=== PATIENT | female | born 1985 | race Caucasian/White ===

== ENCOUNTER 2021-01-20 13:05 | Outpatient (REF) | payer OTHER, SELFPAY ==
[2021-01-21 13:26] LABS: CT PCR NOT DETECTED (Not Detect.); NG PCR NOT DETECTED (Not Detect.)
[2021-01-21 13:28] LABS: BV Int Neg Control Negative (Negative); BV Int Pos Control Positive (Positive)
[2021-01-24 16:47] LABS: HPV mRNA E6/E7 rflx Not Detected (Not Detected)
== END 2021-01-20 13:06 | disposition home or self-care (01) ==
LOC: HO.LAB 13:05
PROVIDERS: PCP Internal Medicine; Visit Provider Advanced Practice Midwife
DX: Z01.419 Encounter for gynecological examination (general) (routine) without abnormal findings (principal); E66.01 Morbid (severe) obesity due to excess calories; Z20.2 Contact with and (suspected) exposure to infections with a predominantly sexual mode of transmission; Z97.5 Presence of (intrauterine) contraceptive device; Z79.899 Other long term (current) drug therapy
CPT/HCPCS: 36415; 87480; 87491; 87510; 87591; 87624; 87660; 88142

== ENCOUNTER 2021-04-12 12:04 | Outpatient (REF) | payer OTHER, SELFPAY | END 2021-04-12 12:05 | disposition home or self-care (01) | LOC: HO.LAB 12:04 | PROVIDERS: Visit Provider Nurse Practitioner Family | DX: Z20.822 Contact with and (suspected) exposure to COVID-19 (principal); J32.9 Chronic sinusitis, unspecified; R06.2 Wheezing | CPT/HCPCS: U0003; U0005 ==

== ENCOUNTER 2021-04-13 14:50 | Outpatient (REF) | payer OTHER, SELFPAY ==
[2021-04-13 15:28] LABS: COVID-19 Test Negative (Negative)
== END 2021-04-13 14:51 | disposition home or self-care (01) ==
LOC: HO.EMPCOV 14:50
PROVIDERS: Visit Provider Internal Medicine
DX: Z20.822 Contact with and (suspected) exposure to COVID-19 (principal)
CPT/HCPCS: 36415; 87635; C9803

== ENCOUNTER 2021-06-12 15:30 | Outpatient (REF) | payer OTHER, SELFPAY ==
--- NOTE | ~2021-06-12 | US_ITS ---
EXAMINATION: US PELVIS AND TRANSVAGINAL CLINICAL INFORMATION: Hirsutism. Evaluate for PCOS. COMPARISON: None TECHNIQUE: Ultrasound of the pelvis is performed using both transabdominal and transvaginal transducers along with Doppler. Transvaginal imaging is performed due to inadequate visualization transabdominally. FINDINGS: The uterus is anteverted measuring 7.5 cm in length, 3.6 cm in AP and 4.5 cm in transverse dimension. There is an IUD visualized within the endometrial canal in good position. However, there appears to be mild discontinuity in the left arm of the IUD. The right arm of the IUD is unremarkable. There is a small hypoechoic lesion in the right posterior cervix likely a fibroid. It measures 1.7 x 1.7 x 2.3 cm. Previously, it measured 1.2 x 0.9 x 1.2 cm. No additional lesions seen. The endometrial thickness is 0.3 cm. The right ovary measures 3.5 x 2.5 x 2.5 cm and volume 11.5 mL. The left ovary measures 3.9 x 2.1 x 2.0 cm and volume 8.6 mL. There is anechoic dominant follicle measuring 1.7 x 1.2 x 1.2 cm. There is no free fluid in the cul-de-sac. US/US pelvic and transvaginal IMPRESSION: 1. Anteverted uterus with a solitary fibroid along the posterior cervix. 2. There is an IUD located within the endometrial canal. The left arm of the IUD appears severed and .
== END 2021-06-12 15:31 | disposition home or self-care (01) ==
LOC: HO.US 15:30
PROVIDERS: PCP Internal Medicine; Visit Provider Internal Medicine
DX: E66.01 Morbid (severe) obesity due to excess calories (principal); L68.0 Hirsutism; Z97.5 Presence of (intrauterine) contraceptive device
CPT/HCPCS: 76830; 76856

== ENCOUNTER 2021-09-18 10:19 | Outpatient (REF) | payer OTHER, SELFPAY ==
[2021-09-18 10:39] LABS: MANUAL DIFF FLAG NO
[2021-09-18 10:49] LABS: Basophils Absolute Auto 0.1 X10*3/uL (0.0-0.2); Basophils Percent Auto 0.7 % (0-2); Eosinophils Absolute Auto 0.2 X10*3/uL (0.0-0.4); Eosinophils Percent Auto 2.4 % (0-4); Hematocrit 40.1 % (37.0-47.0); Hemoglobin 13.1 g/dl (12.0-16.0); Imm Gran Abs Auto 0.02 X10*3/uL (0.00-0.03); Imm Gran Pct Auto 0.3 % (0.0-0.4); Lymphocytes Absolute Auto 2.6 X10*3/uL (1.2-4.9); Lymphocytes Percent Auto 34.3 % (20-40); Mean Corpuscular HGB Conc 32.7 g/dl (31.0-35.0); Mean Corpuscular Hemoglobin 29.8 pg (27.0-33.0); Mean Corpuscular Volume 91.1 fL (80.0-98.0); Monocytes Absolute Auto 0.7 X10*3/uL (0.1-1.2); Monocytes Percent Auto 8.7 % (2-11); Neutrophils Absolute Auto 4.1 x10*3/uL (2.0-8.3); Neutrophils Percent Auto 53.6 % (45-73); Platelet Count 360 X10*3/uL (160-400); Red Cell Distribution Width 13.4 % (11.0-16.0); White Blood Count 7.6 X10*3/uL (4.8-10.8)
[2021-09-18 11:16] LABS: Alanine Aminotransferase 23 U/L (0-31); Albumin Level 4.4 g/dL (3.5-5.0); Alkaline Phosphatase 61 U/L (39-117); Anion Gap 13 (12-20); Aspartate Amino Transferase 20 U/L (5-31); Bilirubin Total 0.5 mg/dL (0.0-1.0); Blood Urea Nitrogen 8 mg/dL (9-16); Carbon Dioxide 24 mmol/L (22-29); Chloride 106 mmol/L (96-108); Cholesterol 159 mg/dL; Estimated Glomerular Filt Rate > 60; Glucose Fasting 101 mg/dL (60-99); HDL Cholesterol 48 mg/dL; LDL Cholesterol Calculated 93 mg/dl; Potassium 4.4 mmol/L (3.3-5.1); Sodium 139 mmol/L (135-145); Total Protein 7.2 g/dL (6.5-8.0); Triglycerides 94 mg/dL
[2021-09-18 11:37] LABS: Thyroid Stimulating Hormone 2.39 uIU/mL (0.32-4.0)
== END 2021-09-18 10:20 | disposition home or self-care (01) ==
LOC: HO.LAB 10:19
PROVIDERS: PCP Internal Medicine; Visit Provider Internal Medicine
DX: E66.01 Morbid (severe) obesity due to excess calories (principal); E78.5 Hyperlipidemia, unspecified; D64.9 Anemia, unspecified
CPT/HCPCS: 36415; 80053; 80061; 84443; 85025

== ENCOUNTER 2021-10-10 08:42 | Outpatient (REF) | payer OTHER, SELFPAY ==
[2021-10-10 13:28] LABS: CT PCR NOT DETECTED (Not Detect.); NG PCR NOT DETECTED (Not Detect.)
== END 2021-10-10 08:43 | disposition home or self-care (01) ==
LOC: HO.LAB 08:42
PROVIDERS: PCP Internal Medicine; Visit Provider Advanced Practice Midwife
DX: Z30.432 Encounter for removal of intrauterine contraceptive device (principal); L68.0 Hirsutism
CPT/HCPCS: 58301; 87491; 87591

== ENCOUNTER → 2021-12-27 14:01 | Outpatient (BNVA) | payer OTHER, SELFPAY | PROVIDERS: PCP Internal Medicine; Visit Provider Advanced Practice Midwife | DX: Z30.430 Encounter for insertion of intrauterine contraceptive device (principal); N63.0 Unspecified lump in unspecified breast | CPT/HCPCS: 58300; 81025 ==

== ENCOUNTER 2022-01-10 14:26 | Outpatient (REF) | payer OTHER, SELFPAY ==
--- NOTE | ~2022-01-10 | MM_ITS ---
EXAMINATION: MM DIAGNOSTIC DIGITAL BREAST TOMOSYNTHESIS, BILATERAL US DIAGNOSTIC ULTRASOUND BREAST, BILATERAL CLINICAL INFORMATION: 36-year-old with small focal palpable area of concern right parasagittal sternal region. No prior breast imaging. No known family history breast cancer. The lifetime risk of breast cancer based on the Tyrer-Cuzick Model is 13%. COMPARISON: None (current study represents initial baseline exam). TECHNIQUE: Digital breast tomosynthesis is performed in both the craniocaudal and mediolateral oblique views along with computer-aided detection (CAD). Synthesized 2D images are generated from the tomosynthesis. Ultrasound right breast is targeted to the central and outer aspect as well as the palpable area right parasternal region. Ultrasound left breast is targeted to the upper outer and posterior 3:00 position. Grayscale imaging and color Doppler are performed without and with harmonics. Patient is able to point to the sternal palpable concern at time of imaging. FINDINGS: There are scattered areas of fibroglandular density (ACR BI-RADS breast composition Category b). There are scattered benign-appearing subcentimeter nodular asymmetries without ultrasound correlate. This includes small macrolobulated nodular asymmetry central posterior 3:00 left breast, mid upper outer left breast, and posterior central right breast. There is benign-appearing parenchymal asymmetry posterior outer right breast on CC view which shows normal dispersed on MLO projection. There is no adenopathy. No skin thickening. Ultrasound of the palpable concern overlying sternum just right of midline demonstrates a subtle oval solid mass isoechoic to slightly hyperechoic within the subcutaneous space with overall dimensions 0.9 cm thickness by 1.3 x 2.1 cm. The location and echogenicity are suggestive of a benign lipoma. Additional ultrasound of the left and right breast 2 further assessed asymmetries on mammography show no ultrasound correlate. There is no cystic or solid mass or intramammary node. No focal architectural abnormality. Preliminary results and management are discussed with the patient at time of visit. MM/MM tomosynthesis diagnostic BI IMPRESSION: 1. Probable subcutaneous lipoma at site of clinical concern overlying sternum measuring 0.9 cm in thickness by 1.3 x 2.1 cm. 2. Scattered benign-appearing nodular asymmetries on mammography without ultrasound correlate. ASSESSMENT: BI-RADS 3: Probably Benign RECOMMENDATION: 1. Bilateral diagnostic mammography in 6 months to follow-up the probable benign small nodular asymmetries. 2. The suspected lipoma subcutaneous space overlying right sternum could be followed clinically. If increasing, or if clinically indicated, this could be further characterized with MRI. This patient's information was entered into a reminder system with a target due date for their next mammogram.
== END 2022-01-10 14:27 | disposition home or self-care (01) ==
LOC: HO.MAMMO 14:26
PROVIDERS: PCP Internal Medicine; Visit Provider Advanced Practice Midwife
DX: N63.12 Unspecified lump in the right breast, upper inner quadrant (principal); R92.2 Inconclusive mammogram
CPT/HCPCS: 76642; 77062; 77066

== ENCOUNTER 2022-02-16 14:00 | Outpatient (REF) | payer OTHER, SELFPAY ==
[2022-02-17 12:09] LABS: CT PCR NOT DETECTED (Not Detect.); NG PCR NOT DETECTED (Not Detect.)
[2022-02-17 14:44] LABS: BV Int Neg Control Negative (Negative); BV Int Pos Control Positive (Positive)
== END 2022-02-16 14:01 | disposition home or self-care (01) ==
LOC: HO.LAB 14:00
PROVIDERS: PCP Internal Medicine; Visit Provider Advanced Practice Midwife
DX: Z01.411 Encounter for gynecological examination (general) (routine) with abnormal findings (principal); Z20.2 Contact with and (suspected) exposure to infections with a predominantly sexual mode of transmission; N89.8 Other specified noninflammatory disorders of vagina
CPT/HCPCS: 81025; 87480; 87491; 87510; 87591; 87660

== ENCOUNTER 2022-04-14 15:44 | Outpatient (REF) | payer OTHER, SELFPAY ==
[2022-04-14 16:42] LABS: Influenza A PCR NEGATIVE (Negative); Influenza B PCR NEGATIVE (Negative); Resp Syncy Virus RNA Qual PCR NEGATIVE (Negative); SARS COV2 PCR INHOUSE NEGATIVE (Negative)
== END 2022-04-14 15:45 | disposition home or self-care (01) ==
LOC: HO.LNP 15:44
PROVIDERS: Visit Provider Physician Assistant Medical
DX: Z20.822 Contact with and (suspected) exposure to COVID-19 (principal); R05.9 Cough, unspecified
CPT/HCPCS: 0241U

== ENCOUNTER 2022-07-13 14:54 | Outpatient (REF) | payer OTHER, SELFPAY ==
--- NOTE | ~2022-07-13 | MM_ITS ---
EXAMINATION: MM DIAGNOSTIC DIGITAL BREAST TOMOSYNTHESIS, BILATERAL CLINICAL INFORMATION: Short interval follow-up scattered bilateral nodular asymmetries noted at diagnostic baseline. Age 37. No known family history breast cancer. The lifetime risk of breast cancer based on the Tyrer-Cuzick Model is 13%. COMPARISON: Bilateral mammography and bilateral targeted breast ultrasound 01/10/2022. TECHNIQUE: Digital breast tomosynthesis is performed in both the craniocaudal and mediolateral oblique views along with computer-aided detection (CAD). Synthesized 2D images are generated from the tomosynthesis. FINDINGS: There are scattered areas of fibroglandular density (ACR BI-RADS breast composition Category b). There is no interval mass or architectural abnormality or developing density. Incidental benign parenchymal asymmetry is again noted mid outer right breast on CC view with normal fibroglandular and fatty attenuation on tomography. Previously suggested small nodular asymmetries are less conspicuous. No suspicious findings. The skin contours are unremarkable. Results are discussed with the patient at time of visit. MM/MM tomosynthesis diagnostic BI IMPRESSION: No mammographic evidence of malignancy. ASSESSMENT: BI-RADS 2: Benign RECOMMENDATION: Routine annual mammography screening, beginning age 40, or earlier as clinical risk factors warrant. This patient's information was entered into a reminder system with a target due date for their next mammogram.
== END 2022-07-13 14:55 | disposition home or self-care (01) ==
LOC: HO.MAMMO 14:54
PROVIDERS: PCP Internal Medicine; Visit Provider Internal Medicine
DX: N64.89 Other specified disorders of breast (principal)
CPT/HCPCS: 77062; 77066

== ENCOUNTER 2022-12-27 17:10 | Outpatient (REF) | payer OTHER, SELFPAY ==
[2022-12-27 18:55] LABS: Influenza A PCR NEGATIVE (Negative); Influenza B PCR NEGATIVE (Negative); Resp Syncy Virus RNA Qual PCR NEGATIVE (Negative); SARS COV2 PCR INHOUSE NEGATIVE (Negative)
== END 2022-12-27 17:11 | disposition home or self-care (01) ==
LOC: HO.LAB 17:10
PROVIDERS: Visit Provider Physician Assistant Medical
DX: R05.9 Cough, unspecified (principal); Z20.822 Contact with and (suspected) exposure to COVID-19
CPT/HCPCS: 0241U

== ENCOUNTER → 2023-02-18 14:56 | Outpatient (BNVA) | payer OTHER, SELFPAY | PROVIDERS: PCP Internal Medicine; Visit Provider Advanced Practice Midwife | DX: Z13.89 Encounter for screening for other disorder (principal) ==

== ENCOUNTER 2023-04-04 16:07 | Outpatient (REF) | payer OTHER, SELFPAY ==
[2023-04-05 08:13] LABS: HBS Num1 14.87 mIU/mL (0-7.99); HBc Num1 0.05 S/CO (0.00-0.79); HBsAGNum1 0.39 S/CO (0.00-0.99); Hepatitis B Core Antibody Nonreactive (Nonreactive); Hepatitis B Surface Antigen Negative (Negative); ~Hepatitis B Surface Antibody REACTIVE (Nonreactive)
[2023-04-07 00:53] LABS: TS Negative Control Passed; TS Panel A 0; TS Panel B 0; TS Positive Control Passed; TSpotTB Negative (Negative)
[2023-04-11 18:39] LABS: Rubella IgG Antibody 7.48 Index; Varicella IgG Antibody >4000.00 index
[2023-04-11 21:39] LABS: Rubeola IgG (Measles) >300.00 AU/mL
== END 2023-04-04 16:08 | disposition home or self-care (01) ==
LOC: HO.LAB 16:07
PROVIDERS: PCP Internal Medicine; Visit Provider Internal Medicine
DX: Z23 Encounter for immunization (principal); Z11.1 Encounter for screening for respiratory tuberculosis
CPT/HCPCS: 36415; 86481; 86704; 86706; 86735; 86762; 86765; 86787; 87340

== ENCOUNTER → 2023-05-10 12:07 | Outpatient (REF) | payer OTHER, SELFPAY ==
--- NOTE | 2023-05-10 12:14 | ECG_ITS ---
Test Reason : CP Blood Pressure : / mmHG Vent. Rate : 068 BPM Atrial Rate : 068 BPM P-R Int : 180 ms QRS Dur : 088 ms QT Int : 404 ms P-R-T Axes : 044 013 028 degrees QTc Int : 429 ms Normal sinus rhythm Normal ECG No previous ECGs available Referred By: Daisy Espinoza Electronically Signed By:ELLI BENNETT MD
== END ==
LOC: HO.CARD 12:07
PROVIDERS: PCP Internal Medicine; Visit Provider Internal Medicine
DX: R07.9 Chest pain, unspecified (principal)
CPT/HCPCS: 93005

== ENCOUNTER → 2023-05-10 12:14 | Outpatient (BNV) | payer OTHER, SELFPAY | PROVIDERS: PCP Internal Medicine; Visit Provider Internal Medicine Cardiovascular Disease | DX: R07.9 Chest pain, unspecified (principal) | CPT/HCPCS: 93010 ==

== ENCOUNTER 2023-05-11 10:29 | Outpatient (REF) | payer OTHER, SELFPAY ==
[2023-05-11 11:43] LABS: Alanine Aminotransferase 15 U/L (0-31); Albumin Level 4.2 g/dL (3.5-5.0); Alkaline Phosphatase 61 U/L (39-117); Anion Gap 13 (12-20); Aspartate Amino Transferase 14 U/L (5-31); Bilirubin Total 0.8 mg/dL (0.0-1.0); Blood Urea Nitrogen 11 mg/dL (9-16); Calcium 9.3 mg/dL (8.4-10.2); Carbon Dioxide 24 mmol/L (22-29); Chloride 107 mmol/L (96-108); Cholesterol 137 mg/dL; Estimated Glomerular Filt Rate > 60; Glucose Fasting 106 mg/dL (60-99); HDL Cholesterol 39 mg/dL; LDL Cholesterol Calculated 78 mg/dl; Potassium 3.9 mmol/L (3.3-5.1); Sodium 140 mmol/L (135-145); Total Protein 6.8 g/dL (6.5-8.0); Triglycerides 104 mg/dL
== END 2023-05-11 10:30 | disposition home or self-care (01) ==
LOC: HO.LAB 10:29
PROVIDERS: PCP Internal Medicine; Visit Provider Internal Medicine
DX: R07.9 Chest pain, unspecified (principal)
CPT/HCPCS: 36415; 80053; 80061

== ENCOUNTER 2023-08-05 18:21 | Emergency (ER) | payer MEDICAID, SELFPAY ==
[2023-08-05 19:59] VITALS: BP 160/107; PULSE 76; RESP 16; TEMP 36.4; O2SAT 98; BMI 42.9
--- NOTE | 2023-08-05 20:00 | ED_ITS ---
HPI - General Adult General Chief complaint: Back Pain/Injury Stated complaint: lower back pain Time Seen by Provider: 08/05/23 21:41 Source: patient Mode of arrival: ambulatory Limitations: no limitations History of Present Illness HPI narrative: 38 YOLD FEMALE WITH PMH OF [place] PRESENTS TO THE ED for left sided scitacia exacerbation radiating down left leg. patient denies any urinary/bowel incontinenece, recent truama, abdominal pain, nausea, vomitting, fever, or chills. Related Data Home Medications Medication Instructions Recorded Confirmed cetirizine 10 mg tablet (Wal-Zyr 10 mg PO DAILY PRN 05/24/21 10/15/22 (cetirizine)) Previous Rx's Medication Instructions Recorded sumatriptan succinate 25 mg tablet 25 mg PO Q2-4H PRN migraine 09/28/21 headache 30 days #9 tabs albuterol sulfate 90 mcg/actuation 1 inh inhalation QID PRN shortness 04/14/22 aerosol inhaler of breath or wheezing #6.7 grams valacyclovir 1 gram tablet 1,000 mg PO TID 7 days #21 tabs 09/24/22 (Valtrex) cyclobenzaprine 10 mg tablet 10 mg PO TID PRN muscle spasm 5 08/05/23 days #15 tabs naproxen 500 mg tablet 500 mg PO BID PRN pain 7 days #14 08/05/23 tabs Allergies Allergy/AdvReac Type Severity Reaction Status Date / Time Seasonal Allergies Allergy Intermediate sinus Verified 08/05/23 20:02 infections, asthma Review of Systems Review of Systems: back pain Yes all other systems are reviewed and are negative PMFSH Past Medical History Medical History Allergic rhinitis Idiopathic hirsutism Migraines Mild persistent asthma Moderate recurrent major depression Surgical History History of wisdom tooth extraction Family History Family History (Updated 02/18/23 @ 15:27 by BOB Krishnamurthy) Father No problems noted. Mother No problems noted. Brother No problems noted. Sister No problems noted. Social History Social History Housing: Apartment Alcohol intake: current Alcohol intake frequency: holidays/special occasions only Alcohol type: wine Patient Tobacco Use Status: Never used Tobacco Smoked in Last 30 Days: No e-Cigarette/Vaping Use: Never Used Second Hand Smoke Exposure: No Use of substances other than those prescribed or required for medical reasons: No Advance Directives: No Advance Directives Information Provided: Yes service: No Current occupational status: employed Current occupation: [employer] Current occupational exposures/hazards: No Gender identity: Female Cognitive needs: No Hearing needs: No Vision needs: No Physical Exam ED Vital Signs: Vital Signs - 24 hr 08/05/23 22:16 Temperature 99.0 F Pulse Rate 63 Respiratory Rate 16 Blood Pressure 163/101 H Pulse Oximetry 99 Oxygen Delivery Method Room Air BMI result Body Mass Index 42.9 Const General: cooperative, healthy appearing, comfortable, no acute distress, well developed, alert, awake and Physically active Orientation/consciousness: oriented to person, oriented to place, oriented to time and patient oriented x3 HENMT Head: Yes normal to inspection, Yes No palpable skull fracture present, Yes normocephalic and Yes atraumatic Eyes General: appearance normal, both eyes and all related structures Neck Neck: Yes normal visual inspection, Yes full ROM, Yes no lymphadenopathy, Yes no meningeal signs, Yes trachea midline, Yes supple, No anterior neck swelling and No tender Chest Chest palpation & inspection: normal inspection of the chest and normal palpation of entire chest wall Resp Effort & Inspection: normal respiratory effort and able to speak in complete sentences Auscultation: clear to auscultation bilaterally Cardio Jugular venous distension: no JVD Heart sounds: S1 normal heart sound present and S2 normal heart sound present GI Inspection: Yes normal to inspection and No abdominal wall ecchymosis Palpation (GI): Soft to palpation, not firm, nontender, no guarding and not rigid General: No CVA tenderness and Yes no CVA tenderness Back/Spine/Pelvis Other: positive for left gluteal tenderness without any redness, ecchymosis, crepitus, fluctulance, or mass. Back: no CVA tenderness, No CVA tenderness and No back tenderness Skin General skin exam: no rashes or lesions noted, elasticity normal and turgor normal Neuro General: oriented to person, oriented to place, oriented to time, patient oriented x3, gait normal, tone normal, moves all extremities, Normal light touch and pain sensation, no meningeal signs, no focal motor deficits, CN's II-XI intact bilaterally and normal sensation to monofilament Extrem General: Yes normal to inspection and Yes full ROM Psych Appearance: grossly normal, well kempt and not disheveled Course Course Course Narrative: RME performed by Amy Whitfield PA-C. Patient is a 38 year old assigned female at presenting to the emergency department with low back pain. Patient placed back in the waiting room pending room availability. Medications Administered Discontinued Medications Generic Name Dose Route Start Last Admin Trade Name Freq PRN Reason Stop Dose Admin Cyclobenzaprine HCl 10 mg 08/05/23 22:24 08/05/23 22:34 Cyclobenzaprine Hcl 10 Mg Tablet PO 08/05/23 22:25 10 mg ONCE ONE Administration Ketorolac Tromethamine 30 mg 08/05/23 22:24 08/05/23 22:34 Ketorolac Tromethamine 30 Mg/Ml Vial IM 08/05/23 22:25 30 mg ONCE ONE Administration Medical Decision Making Medical Decision Making MDM Narrative: 38 yold female presents to ED for sciatica exacerbation. Patient denies any trauma, abdominal pain, nausea, vomiting, flank pain, fever, chills, dysuria, hematuria. Sciatica exacerbation. Differential Diagnosis Differential Diagnoses: The differential diagnosis associated with the presentation includes (UTI, kidney stones, lumbar radiculopathy, sciatica) External Record Review External record reviewed: Other (Prior visit) Tests considered The following testing was considered but not selected: UA, x-ray Prescription Management I considered prescription management with: Pain Medication Discharge Plan Discharge Clinical Impression: Sciatic pain Patient Disposition: Home, Self-Care Instructions: Sciatica (ED) Additional Instructions: Return to the ED immediately for worsening back pain, urinary/bowel incontinence, nausea, vomiting, flank pain, fever, chills, dysuria, hematuria, numbness/tingling of lower extremity, paralysis, trouble walking, or any other concerning symptoms. Please follow-up primary care provider Prescriptions: New naproxen 500 mg tablet 500 mg PO BID PRN (Reason: pain) 7 Days Qty: 14 0RF cyclobenzaprine 10 mg tablet 10 mg PO TID PRN (Reason: muscle spasm) 5 Days Qty: 15 0RF Rx Instructions: side effect is drowsiness. Do not take at work or while driving. No Action cetirizine [Wal-Zyr (cetirizine)] 10 mg tablet 10 mg PO DAILY PRN sumatriptan succinate 25 mg tablet 25 mg PO Q2-4H PRN (Reason: migraine headache) 30 Days Qty: 9 3RF Rx Instructions: do not exceed 8 doses per 24 hrs albuterol sulfate 90 mcg/actuation HFA aerosol inhaler 1 inh inhalation QID PRN (Reason: shortness of breath or wheezing) Qty: 6.7 0RF valacyclovir [Valtrex] 1 gram tablet 1,000 mg PO TID 7 Days Qty: 21 0RF Mirena 20 mcg/24 hours (7 yrs) 52 mg intrauterine device 1 device intrauterine ONCE Qty: 1 0RF Stand Alone Forms: Work/School Release Interventions: ED Discharge Assessment Last Done: 08/05/23 23:18 Discharge Date/Time: 08/05/23 23:18 Print Language: [place]
[2023-08-05 22:16] VITALS: BP 163/101; PULSE 63; RESP 16; TEMP 37.2; O2SAT 99
--- NOTE | 2023-08-05 22:45 | PC.NURSE ---
pt a&o, no sob or chest pain, medicated per mar for back pain. Will continue to monitor.
== END 2023-08-05 23:18 | disposition home or self-care (01) ==
PROVIDERS: Emergency Provider Internal Medicine
DX: M54.42 Lumbago with sciatica, left side (principal); Z79.899 Other long term (current) drug therapy
CPT/HCPCS: 96372; 99284; J1885

== ENCOUNTER 2023-09-12 09:18 | Emergency (ER) | payer OTHER, MEDICAID, SELFPAY ==
--- NOTE | ~2023-09-12 | XR_ITS ---
EXAMINATION: XR KNEE, RIGHT CLINICAL INFORMATION: Pain. Knee injury. COMPARISON: None available. TECHNIQUE: Four views of the right knee. FINDINGS: No joint effusion, fracture, or dislocation or destructive process. XR/XR knee RT 3V IMPRESSION: Normal right knee.
--- NOTE | ~2023-09-12 | XR_ITS ---
EXAMINATION: XR FINGER, LEFT CLINICAL INFORMATION: Pain in the thumb. COMPARISON: None available. TECHNIQUE: 3 views of the left thumb. FINDINGS: Transverse nondisplaced fracture through the base of the distal phalanx of the thumb. The IP joint is intact. No other fractures are seen. XR/XR finger LT min 2V IMPRESSION: Fracture as described.
[2023-09-12 09:20] VITALS: BP 182/101; PULSE 80; RESP 19; TEMP 36.8; O2SAT 97; BMI 44.3
--- NOTE | 2023-09-12 09:34 | ED_ITS ---
HPI - General Adult General Chief complaint: General Medical Stated complaint: L Thumb & R Knee Injury S/P Fall 09/12/23 Time Seen by Provider: 09/12/23 09:34 Source: patient, RN notes reviewed and old records reviewed Mode of arrival: ambulatory History of Present Illness HPI narrative: 38-year-old female with a past medical history of asthma, migraines, depression presenting to the ED complaining of left thumb and right knee pain s/p mechanical trip and fall work [employer] around 08:45AM. States tripped and fell while reaching for badge to clock in, falling forward, mostly caught herself, denies head trauma or LOC. denies symptoms prior to fall. Has been ambulatory since incident. Denies new neck/back pain, CP/SOB, abdominal pain, numbness, weakness Onset (ago): hour(s) Related Data Home Medications Medication Instructions Recorded Confirmed cetirizine 10 mg tablet (Wal-Zyr 10 mg PO DAILY PRN 05/24/21 10/15/22 (cetirizine)) Previous Rx's Medication Instructions Recorded sumatriptan succinate 25 mg tablet 25 mg PO Q2-4H PRN migraine 09/28/21 headache 30 days #9 tabs albuterol sulfate 90 mcg/actuation 1 inh inhalation QID PRN shortness 04/14/22 aerosol inhaler of breath or wheezing #6.7 grams valacyclovir 1 gram tablet 1,000 mg PO TID 7 days #21 tabs 09/24/22 (Valtrex) cyclobenzaprine 10 mg tablet 10 mg PO TID PRN muscle spasm 5 08/05/23 days #15 tabs naproxen 500 mg tablet 500 mg PO BID PRN pain 7 days #14 08/05/23 tabs Allergies Allergy/AdvReac Type Severity Reaction Status Date / Time Seasonal Allergies Allergy Intermediate sinus Verified 08/05/23 20:02 infections, asthma Review of Systems Review of Systems: Constitutional: No Fever, No Chills ENT/Mouth: No Ear Pain, No Nasal Congestion, No sore throat, No Rhinorrhea, No Swallowing Difficulty Cardiovascular: No Chest Pain, No SOB Respiratory: No Cough Gastrointestinal: No Nausea, No Vomiting, No Abdominal pain Musculoskeletal: + joint pain, No Myalgias, + Joint Swelling Skin: No Skin Lesions, No rash Neuro: No Weakness, No Numbness, No Paresthesias, No head injury, No LOC Yes all other systems are reviewed and are negative Constitutional: Constitutional: Reports as per [facility] Past Medical History Attestation statement: The following information was validated with the patient. Source: old records reviewed Medical History Idiopathic hirsutism Migraines Moderate recurrent major depression Allergic rhinitis Mild persistent asthma Surgical History History of wisdom tooth extraction Family History Family History Father No problems noted. Mother No problems noted. Brother No problems noted. Sister No problems noted. Social History Social History Housing: Apartment Alcohol intake: current Alcohol intake frequency: holidays/special occasions only Alcohol type: wine Patient Tobacco Use Status: Never used Tobacco e-Cigarette/Vaping Use: Never Used Second Hand Smoke Exposure: No Advance Directives: No service: No Current occupational status: employed Current occupation: [employer] Current occupational exposures/hazards: No Gender identity: Female Cognitive needs: No Hearing needs: No Vision needs: No Physical Exam ED Vital Signs: Vital Signs - 24 hr 09/12/23 09:20 Temperature 98.2 F Pulse Rate 80 Respiratory Rate 19 Blood Pressure 182/101 H Pulse Oximetry 97 Oxygen Delivery Method Room Air BMI result Body Mass Index 44.3 Const General: cooperative, healthy appearing and no acute distress Orientation/consciousness: patient oriented x3 Limitations: no limitations HENOR Head: Yes normal to inspection and Yes atraumatic Ears: hearing grossly normal bilaterally General nose exam: Normal external nose present Face and sinus: Yes normal facial exam Eyes General: appearance normal, both eyes and all related structures EOM: EOMs intact bilaterally Neck Neck: Yes normal visual inspection and Yes no meningeal signs Resp Effort & Inspection: normal respiratory effort and no respiratory distress Cardio Rate: regular rate Peripheral pulses: Peripheral pulses 2+ throughout GI Inspection: Yes normal to inspection Palpation (GI): Soft to palpation, nontender, no guarding and not rigid General: Yes no CVA tenderness Back/Spine/Pelvis Back: no CVA tenderness Skin Rashes: no rashes Neuro General: patient oriented x3, tone normal and no meningeal signs Cranial nerves: Yes CN's II-XII intact bilaterally Gait exam (Neuro): Normal gait present Extrem Other: Right knee with superficial abrasions noted. Mildly tender to palpation. Full range of motion intact. NV intact distally Left thumb with mild swelling to palmar distal aspect with tenderness to palpation. ROM intact however slightly limited secondary to pain. Finger to thumb opposition intact. Neurovascularly intact. No snuffbox tenderness Course Course Course Narrative: XR knee RT 3V IMPRESSION: Normal right knee. XR finger LT min 2V IMPRESSION: Fracture as described. Transverse nondisplaced fracture through the base of the distal phalanx of the thumb. The IP joint is intact. No other fractures are seen. >> patient placed in finger splint recommended close orthopedic hand follow-up Results discussed with patient including worrisome signs and symptoms and strict return precautions, and when to return to the emergency department. They v erbalized understanding and feel safe for discharge at this time. Medications Administered Discontinued Medications Generic Name Dose Route Start Last Admin Trade Name Freq PRN Reason Stop Dose Admin Bacitracin 1 appl 09/12/23 10:02 09/12/23 10:13 Bacitracin Oint 0.9 Gm Packet TOPICAL 09/12/23 10:03 1 appl ONCE ONE Administration Protocol Procedures Orthopedic Splinting/Casting Injury #1: Side: left Upper Extremity Injury Location: finger Upper Extremity Immobilizer: finger (other) Medical Decision Making Medical Decision Making [facility] Narrative: 38-year-old female with a past medical history of asthma, migraines, depression presenting to the ED complaining of left thumb and right knee pain s/p mechanical trip and fall work [employer] around 08:45AM. On exam hypertensive likely from pain, NAD, nontoxic appearing. Physical exam as above. Concern for fracture versus sprain vs tendon/ligamental injury. Low suspicion for septic joint/arthritis Plan: X-rays Please refer to course for remaining clinical decision making, interpretation of labs/imaging results, and discussions with consultants and/or family members. Differential Diagnosis Differential Diagnoses: The differential diagnosis associated with the presentation includes As above Admission/Observation Consideration of admission/observation: Escalation of care including admission/observation considered Lab Data [facility] Lab Attestation statement: I reviewed the patient's lab results. Independent Interpretation I performed an independent interpretation of an: Plain X-Ray Radiology Impression Discussion of test interpretation with radiology: I have reviewed the radiologist's reading. External Record Review External record reviewed: Inpatient record, Office record, Outpatient record, Prior outpatient labs, Prior outpatient radiology, Primary care record and Outside ED record Tests considered The following testing was considered but not selected: As above Prescription Management I considered prescription management with: Pain Medication Discharge Plan Discharge Clinical Impression: Fracture of distal phalanx of finger Patient Disposition: Home, Self-Care Instructions: Finger Fracture (ED) Additional Instructions: Keep finger splint on, dry and clean You need to follow-up with orthopedic hand specialist Ice and elevate Take Tylenol /Motrin for pain/swelling If symptoms persist or worsen her pain becomes unbearable return to the ED Avoid heavy lifting Prescriptions: No Action naproxen 500 mg tablet 500 mg PO BID PRN (Reason: pain) 7 Days Qty: 14 0RF cyclobenzaprine 10 mg tablet 10 mg PO TID PRN (Reason: muscle spasm) 5 Days Qty: 15 0RF Rx Instructions: side effect is drowsiness. Do not take at work or while driving. cetirizine [Wal-Zyr (cetirizine)] 10 mg tablet 10 mg PO DAILY PRN sumatriptan succinate 25 mg tablet 25 mg PO Q2-4H PRN (Reason: migraine headache) 30 Days Qty: 9 3RF Rx Instructions: do not exceed 8 doses per 24 hrs albuterol sulfate 90 mcg/actuation HFA aerosol inhaler 1 inh inhalation QID PRN (Reason: shortness of breath or wheezing) Qty: 6.7 0RF valacyclovir [Valtrex] 1 gram tablet 1,000 mg PO TID 7 Days Qty: 21 0RF Mirena 20 mcg/24 hours (7 yrs) 52 mg intrauterine device 1 device intrauterine ONCE Qty: 1 0RF Referrals: Radha Phan MD [Physician] - 1 week Stand Alone Forms: Work/School Release Interventions: ED Discharge Assessment Last Done: 09/12/23 11:10 Discharge Date/Time: 09/12/23 11:16
[2023-09-12] MEDS: Bacitracin Oint 0.9 GM PACKET 1 APPL TOPICAL (10:13)
== END 2023-09-12 11:16 | disposition home or self-care (01) ==
PROVIDERS: Emergency Provider Emergency Medicine; PCP Internal Medicine
DX: S62.522A Displaced fracture of distal phalanx of left thumb, initial encounter for closed fracture (principal); M25.561 Pain in right knee; M79.645 Pain in left finger(s); W01.0XXA Fall on same level from slipping, tripping and stumbling without subsequent striking against object, initial encounter; Y93.9 Activity, unspecified; Y92.9 Unspecified place or not applicable; Y99.0 Civilian activity done for income or pay; Z79.899 Other long term (current) drug therapy
CPT/HCPCS: 29130; 73140; 73562; 99282; 99283

== ENCOUNTER 2023-09-17 12:08 | Outpatient (REF) | payer OTHER, MEDICAID, SELFPAY ==
--- NOTE | ~2023-09-17 | XR_ITS ---
EXAMINATION: XR HAND, LEFT CLINICAL INFORMATION: Left hand pain, attention thumb distal phalanx. COMPARISON: 09/12/2023 left thumb radiographs. TECHNIQUE: 2 views of the left hand and 2 views of the left thumb. FINDINGS: Redemonstration of a transverse nondisplaced fracture through the base of the distal phalanx of the thumb. Fracture lines appear slightly more conspicuous. XR/XR hand LT min 3V IMPRESSION: Redemonstration of fracture base of distal phalanx of the thumb.
== END 2023-09-17 12:09 | disposition home or self-care (01) ==
LOC: HO.HOSX 12:08
PROVIDERS: Visit Provider Orthopaedic Surgery
DX: S62.522A Displaced fracture of distal phalanx of left thumb, initial encounter for closed fracture (principal)
CPT/HCPCS: 26750; 73130; 99202

== ENCOUNTER 2023-09-17 12:22 | Outpatient (AMB) | payer OTHER, MEDICAID, SELFPAY ==
--- NOTE | 2023-09-17 12:40 | MHC.OFFVIS ---
Intake Intake Visit Reasons: F/C left thumb fx/ED follow up Allergies Seasonal Allergies Allergy (Intermediate, Verified 08/05/23 20:02) sinus infections, asthma HPI F/C left thumb fx/ED follow up HPI Details Maria Elena is a 38 year old woman who presents for a workers comp visit of her left thumb fracture, S/P fall, DOI: 09/12/23. She says that she fell at her work site property while clocking in for the morning. She was seen in the ED and placed in a splint before being referred here. She says she is doing well overall, with some pain and tension when she pushes on her thumb. She is seen today wearing her brace today. She says this occurred on her work property, in the parking lot while walking to her workplace to punch in for her shift. [facility] Medical History Idiopathic hirsutism Migraines Moderate recurrent major depression Allergic rhinitis Mild persistent asthma Surgical History History of wisdom tooth extraction Family History Father No problems noted. Mother No problems noted. Brother No problems noted. Sister No problems noted. 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 Current occupational exposures/hazards: No Gender identity: Female Cognitive needs: No Hearing needs: No Vision needs: No Female Reproductive History Menstrual Age of Menarche: 13 Review of Systems Const All systems reviewed & are unremarkable except as noted in HPI and below Physical Exam Const General: cooperative, healthy appearing and no acute distress Orientation/consciousness: patient oriented x3 HEENT Head: Yes normocephalic and Yes atraumatic Eyes EOM: EOMs intact bilaterally Resp Effort & Inspection: normal respiratory effort and able to speak in complete sentences Cardio Jugular venous distension: no JVD Skin General skin exam: turgor normal Rashes: no rashes Neuro General: patient oriented x3 Extrem Other: Evaluation of Left Upper Extremity: The patient is alert, oriented, and in no acute distress Neuro: Median, Ulnar, Radial nerves motor and sensory intact and sensation is normal to the tips of all digits Vascular: Cap refill brisk ROM: She can bring her fingers closed toa fist and back into full extension Skin: No lacerations or abrasions. General: No Erythema or evidence of infection. She has got some resolving swelling and ecchymosis about the left thumb. Most TTP over the thumb distal phalanx No MCP or CMC joint tenderness No snuffbox tenderness Minimal tenderness over scaphoid tubercle No tenderness about the wrist it it she has smooth painless wrist range of motion. Good active motion at the CMC and MCP joints without discomfort, other than some tightness felt at extremes of motion Radiographs: 3 views of the left hand, with attention to the thumb, were taken and viewed by me today in clinic. They show a distal phalanx body fracture, comminuted and minimally displaced. There is satisfactory fracture alignment, unchanged from her previous radiographs on 09/12/23. Psych Appearance: grossly normal Affect: normal affect Attitude: cooperative Office Procedures Fracture Care Details: Distal phalanx fracture care 82597 Fracture Billing Code: Fracture Billing Code Assessment & Plan Assessment & Plan (1) Fracture of distal phalanx of left thumb: Code(s): S62.522A - Displaced fracture of distal phalanx of left thumb, initial encounter for closed fracture Plan Assessment & Plan: 1. Left distal phalanx body fracture, comminuted, minimally displaced From a fall, DOI: 09/12/23 This is a workers comp injury I educated her about this condition I discussed operative and non-operative treatment options I believe this can be managed non-operatively She was placed in a short-arm thumb spica cast today. I discussed activity modification, she is to avoid lifting anything heavier than a cellphone, or pinching against her thumb for the next 6 weeks She will follow up in 3 weeks with new radiographs. If she is only minimally tender, and there is some evidence of interval bony healing we can then switch to a thumb splint with daytime activities for an additional 2 weeks. Scribed for Radha Phan MD by Juan Hernadez infertility medical assistant, on 09/17/23 at 12:45 PM, EST. Orders: Orders XR hand LT min 3V Today M79.642 - Pain in left hand Coding Level of Care Code New Pt Level 3 (48377) Diagnoses Fracture of distal phalanx of left thumb S62.522A CPT Codes Fracture Care - Fracture Billing Code: Fracture Billing Code ([id number])
== END 2023-09-17 13:21 | disposition home or self-care (01) ==
PROVIDERS: PCP Internal Medicine; Visit Provider Orthopaedic Surgery
DX: S62.522A Displaced fracture of distal phalanx of left thumb, initial encounter for closed fracture (principal)
CPT/HCPCS: 26750; 99203

== ENCOUNTER 2023-10-08 09:52 | Outpatient (REF) | payer OTHER, MEDICAID, SELFPAY ==
--- NOTE | ~2023-10-08 | XR_ITS ---
EXAMINATION: XR HAND, LEFT CLINICAL INFORMATION: Pain. COMPARISON: Radiograph left hand 09/17/2023. TECHNIQUE: PA, lateral, and oblique views of the left hand. FINDINGS: Similar appearance of comminuted fracture within the base of the distal phalanx of the first digit. No significant osseous bridging or callus formation. No interval injury. XR/XR hand LT min 3V IMPRESSION: Similar appearance of comminuted fracture within the base of the distal phalanx of the first digit.
== END 2023-10-08 09:53 | disposition home or self-care (01) ==
LOC: HO.HOSX 09:52
PROVIDERS: Visit Provider Physician Assistant
DX: S62.522D Displaced fracture of distal phalanx of left thumb, subsequent encounter for fracture with routine healing (principal)
CPT/HCPCS: 73130; 99212

== ENCOUNTER 2023-10-08 11:20 | Outpatient (AMB) | payer OTHER, MEDICAID, SELFPAY ==
[2023-10-08 11:37] VITALS: BMI 44.3
--- NOTE | 2023-10-08 11:37 | MHC.OFFVIS ---
Intake Vital Signs 10/08/23 11:37 Height 5 ft 3 in Weight 250 lb BMI 44.3 Intake Visit Reasons: OV-left thumb fx-cast off Intake Note: Maria Elena is a 38 year old right hand dominant female who presents today for a follow up of her left thumb fx, DOI 09/12/23. Patient reports she hit her thumb a couple time since he nail grew it with hit on everything. Denies numbness and tingling. Allergies Seasonal Allergies Allergy (Intermediate, Verified 10/08/23 11:39) sinus infections, asthma HPI OV-left thumb fx-cast off HPI Details Maria Elena is a 38 year old woman who returns for a follow up of her left thumb fracture, S/P fall, DOI: 09/12/23. This is a workers comp visit. She says she is doing well overall. She has some pain primarily when bumping her thumb against objects. She says this has been more common, and painful, since her nail regrew. She is seen today wearing her thumb spica cast. After cast removal she notes soome pain and stiffness along the first dorsal compartment and into the IP joint of the thumb. [facility] Medical History Idiopathic hirsutism Migraines Moderate recurrent major depression Allergic rhinitis Mild persistent asthma Surgical History History of wisdom tooth extraction Family History Father No problems noted. Mother No problems noted. Brother No problems noted. Sister No problems noted. 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 Current occupational exposures/hazards: No Gender identity: Female Cognitive needs: No Hearing needs: No Vision needs: No Female Reproductive History Menstrual Age of Menarche: 13 Review of Systems Const All systems reviewed & are unremarkable except as noted in HPI and below Physical Exam Vital Signs: BMI result Body Mass Index 44.3 Const General: no acute distress, alert and awake Orientation/consciousness: patient oriented x3 HEENT Head: Yes normocephalic and Yes atraumatic Eyes EOM: EOMs intact bilaterally Resp Effort & Inspection: normal respiratory effort and able to speak in complete sentences Cardio Jugular venous distension: no JVD Rate: regular rate Peripheral pulses: Peripheral pulses 2+ throughout GI Palpation (GI): Soft to palpation Skin General skin exam: turgor normal Lesions: no lesions Rashes: no rashes Neuro General: patient oriented x3 Extrem Other: Left thumb: Pea-sized subungual hematoma noted. No TTP at the IP joint or distally at the fracture site. She is able to make a full fist. She is able to perform full extension. She has slight stiffness at the IP joint & CMC joint. Sensation intact. Cap refill brisk Psych Appearance: grossly normal Affect: normal affect Attitude: cooperative Results Reviewed Results Reviewed: X-rays of the left hand which were obtained while in the office today and were reviewed by me, Keila Ca PA-C, revealed a redemonstration of the fracture at the thumb distal phalanx base, with routine healing Assessment & Plan Assessment & Plan (1) Fracture of distal phalanx of left thumb: Code(s): S62.522A - Displaced fracture of distal phalanx of left thumb, initial encounter for closed fracture Plan Maria Elena is a 38 year old woman who returns for a follow up of her left thumb fracture, S/P fall, DOI: 09/12/23. This is a workers comp visit. She says she is doing well overall. She has some pain primarily when bumping her thumb against objects. She says this has been more common, and painful, since her nail regrew. She is seen today wearing her thumb spica cast. After cast removal she notes soome pain and stiffness along the first dorsal compartment and into the IP joint of the thumb. She was placed in a thumb spica splint to be worn with daily activity for the next 4 weeks. A course of OT was ordered to work on gentle ROM exercises. She will follow up in 4 weeks for ROM check, sooner if needed. Orders: Orders XR hand LT min 3V Today M79.643 - Pain in unspecified hand Patient Instructions: Scribed for Keila Ca PA-C by Juan Hernadez, medical interpreter, on 10/08/23 at 11:45 AM EST. Coding Level of Care Code Global (37483) Diagnoses Fracture of distal phalanx of left thumb S62.522A
== END 2023-10-08 12:04 | disposition home or self-care (01) ==
PROVIDERS: PCP Internal Medicine; Visit Provider Physician Assistant
DX: S62.522A Displaced fracture of distal phalanx of left thumb, initial encounter for closed fracture (principal)
CPT/HCPCS: 99024

== ENCOUNTER 2023-10-22 17:33 | Outpatient (AMB) | payer OTHER, MEDICAID, SELFPAY ==
--- NOTE | 2023-10-22 17:35 | MHC.PC.OV ---
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: No Accompanied by: Self / Same As Patient Allergies Seasonal Allergies Allergy (Intermediate, Verified 10/22/23 17:45) sinus infections, asthma Medication List - Last Reconciled 10/22/23 by Daisy Espinoza MD albuterol sulfate 90 mcg/actuation 1 inh inhalation QID PRN cetirizine (Wal-Zyr (cetirizine)) 10 mg PO DAILY PRN valacyclovir (Valtrex) 1,000 mg PO TID 7 days Tobacco use date assessed: 10/22/23 Dental Screening Dental Screen Date: 10/22/23 Did you have a dental visit in the last 12 months?: Yes Did you have a dental problem in the last 6 months where you did not have access to dental care?: No Was dental information given to patient?: Patient has dentist HPI HPI Comments History of Present Illness Details This is a 38-year-old female that comes for physical exam. She is morbidly obese with a BMI of 43 and was advised to diet and exercise to reach BMI goal less than 30. Has moderate recurrent major depression that has been stable without medications for counseling. Last Pap smear was 2020 was normal. Has a splinter in some due to fracture which was cast. Blood pressure elevated and I will start her in losartan. Blood pressure will be recheck in 3 weeks by nurse navigator. [facility] Medical History Idiopathic hirsutism Migraines Moderate recurrent major depression Allergic rhinitis Mild persistent asthma Surgical History History of wisdom tooth extraction Family History Father No problems noted. Mother No problems noted. Brother No problems noted. Sister No problems noted. 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 1. Little interest or pleasure in doing things: not at all 2. Feeling down, depressed, or hopeless: more than half the days 3. Trouble falling or staying asleep, or sleeping too much: nearly every day 4. Feeling tired or having little energy: more than half the days 5. Poor appetite or overeating: several days 6. Feeling bad about yourself - or that you are a failure or have let yourself or your family down: not at all 7. Trouble concentrating on things, such as reading the newspaper or watching television: not at all 8. Moving or speaking so slowly that other people could have noticed. Or the opposite - being so fidgety or restless that you have been moving around a lot more than usual: several days 9. Thoughts that you would be better off or of hurting yourself in some way: not at all Total score: 9 Depression Screening Interpretation: Positive Depression Screening Follow-up: Existing condition Depression Screening Done: Yes 49559 - PHQ-9 Billing: Yes Source: Developed by Drs. Edilberto Song, Viv Rodriguez, Shad Trivedi and colleagues, with an educational jessica from [employer]. Thrive Questionnaire Date Thrive assessed: 10/22/23 I am a: Patient What is your living situation today?: I have a steady place to live Within the past 12 months, did the food you bought not last and you didn't have the money to get more?: Never true Within the past 12 months, did you worry whether your food would run out before you got money to buy more?: Never true Do you have trouble paying for medicines?: No Do you have trouble getting transportation to medical appointments?: No Do you have trouble paying your heating and electricity bill?: No Do you have trouble taking care of your child, family member or friend?: No Do you have trouble with day-to-day activities such as bathing, preparing meals, shopping, managing finances, etc.?: No Are you currently unemployed and looking for a job?: No Are you interested in more education?: No Please select the resources that you would like help with: None Currently or been in a relationship where the following occur: no concerns reported AUDIT C Alcohol Use Questionnaire (AUDIT-C) 1. How often do you have a drink containing alcohol?: Monthly or less 2. How many drinks containing alcohol do you have on a typical day when you are drinking?: 1 or 2 3. How often do you have six or more drinks on one occasion?: Never Total Score: 1 Score Reviewed/Action Taken: No NATE-7 AMB Questionnaire NATE-7 Date NATE - 7 assessed: 10/22/23 Feeling nervous, anxious, or on edge: 1 = Several days Not being able to stop or control worryin = Not at all Worrying too much about different things: 0 = Not at all Trouble relaxin = Not at all Being so restless that it is hard to sit still: 0 = Not at all Becoming easily annoyed or irritable: 0 = Not at all Feeling afraid as if something awful might happen: 0 = Not at all Total NATE-7 score (0-4 normal; 5-9 mild; 10-14 moderate; 15-21 severe): 1 Source: Developed by Drs. Edilberto Song, Viv Rodriguez, Shad Trivedi and colleagues, with an educational jessica from [employer]. NATE-7 Assessment Billing NATE-7 Assessment Tool: NATE-7 Assessment 53551 Review of Systems Const All systems reviewed & are unremarkable except as noted in HPI and below Eyes Reports no additional complaints, Denies change in vision and Denies other visual disturbances Card Denies chest pain at rest, Denies chest pain with activity, Denies edema, Denies irregular heart rhythm, Denies claudication, Denies dyspnea, Denies dyspnea on exertion, Denies orthopnea, Denies paroxysmal nocturnal dyspnea and Denies slow heart rate Resp Denies cough, Denies dyspnea and Denies dyspnea on exertion GI Denies abdominal pain, Denies change in bowel habits, Denies excessive flatus, Denies nausea and Denies vomiting Denies urinary incontinence, Denies urinary hesitancy and Denies urinary urgency Musc Denies abnormal gait, Denies atrophy, Denies deformity and Denies limited range of motion Skin/Breast Denies bleeding lesions, Denies changing lesions and Denies rash Neuro Denies abnormal gait, Denies behavioral changes, Denies confusion and Denies lack of coordination Psych Denies behavioral changes and Denies confusion Physical exam (Primary Care) Vital Signs: Last Vital Signs BP 160/90 H 10/22/23 17:37 BMI result Body Mass Index 43.0 Tobacco/Smoking Status: Tobacco use Status Tobacco use date assessed 10/22/23 10/22/23 17:43 Patient Tobacco Use Status Never used Tobacco 10/22/23 17:36 e-Cigarette/Vaping Use Never Used 10/22/23 17:36 PHQ-9: PHQ-9 Score PHQ-9: Total score 9 10/22/23 17:43 Depression Screening Interpretation: Positive Depression Screening Follow-up: Existing condition Thrive Assessment: Date of Thrive Assessment Date Thrive assessed 10/22/23 10/22/23 17:43 Currently or been in a relationship where the following occur: no concerns reported Const General: No confusion Orientation/consciousness: patient oriented x3 and No confusion HENMT Head: Yes normal to inspection, Yes normocephalic and Yes atraumatic Ears: external ears normal Eyes General: appearance normal, both eyes and all related structures Eyelids: Yes eyelids normal Conjunctivae: conjunctivae normal Neck Neck: Yes normal visual inspection and Yes supple Resp Effort & Inspection: normal respiratory effort Auscultation: clear to auscultation bilaterally Cardio Jugular venous distension: no JVD Rate: regular rate Rhythm: regular rhythm Heart sounds: S1 normal heart sound present and S2 normal heart sound present GI Inspection: Yes normal to inspection Palpation (GI): Soft to palpation and nontender Auscultation: normal bowel sounds Skin General skin exam: no rashes or lesions noted Neuro General: patient oriented x3, no focal motor deficits and No confusion Extrem General: Yes full ROM Psych Appearance: grossly normal Assessment and Plan Assessment & Plan (1) Physical exam: Code(s): Z00.00 - Encounter for general adult medical examination without abnormal findings Plan: Repeat in a year. (2) Obesity, morbid, BMI 40.0-49.9: Code(s): E66.01 - Morbid (severe) obesity due to excess calories Plan: Start diet and exercise. BMI goal is less than 30. (3) Moderate recurrent major depression: Code(s): F33.1 - Major depressive disorder, recurrent, moderate Plan: Stable without medications. Orders: Orders ECG 12 lead EKG Today I10 - Essential (primary) hypertension Medications: New losartan 25 mg PO DAILY 90 days 90 tabs 0RF I10 - Essential (primary) hypertension Coding Level of Care Code Est Pt Prev Care 18-39y(81312) Diagnoses Physical exam Z00.00 Obesity, morbid, BMI 40.0-49.9 E66.01 Moderate recurrent major depression F33.1 Additional Codes NATE-7 Assessment Billing - NATE-7 Assessment Tool: NATE-7 Assessment 66368 ([id number]) Time Spent (min) 31
[2023-10-22 17:37] VITALS: BP 160/90; BMI 43.0
[2023-10-22 18:01] VITALS: BP 160/90
== END 2023-10-22 17:59 | disposition home or self-care (01) ==
LOC: HO.HMGH 17:33
PROVIDERS: PCP Internal Medicine; Visit Provider Internal Medicine
DX: Z00.00 Encounter for general adult medical examination without abnormal findings (principal); E66.01 Morbid (severe) obesity due to excess calories; F33.1 Major depressive disorder, recurrent, moderate; Z68.41 Body mass index [BMI] 40.0-44.9, adult
CPT/HCPCS: 99395

== ENCOUNTER 2023-11-07 10:36 | Outpatient (REF) | payer OTHER, MEDICAID, SELFPAY ==
--- NOTE | ~2023-11-07 | XR_ITS ---
EXAMINATION: XR HAND, LEFT CLINICAL INFORMATION: Pain left hand. COMPARISON: Left hand 10/08/2023 TECHNIQUE: PA, lateral, and oblique views of the left hand. FINDINGS: Again seen is a transverse fracture through the distal phalanx of the thumb not involving the joint space. Since the prior study there has been some evidence of fracture fragment healing with increasing sclerosis. Complete bony fusion has not yet occurred. No new fractures are seen. XR/XR hand LT min 3V IMPRESSION: Healing fracture distal phalanx of the thumb.
== END 2023-11-07 10:37 | disposition home or self-care (01) ==
LOC: HO.HOSX 10:36
PROVIDERS: Visit Provider Physician Assistant
DX: S62.525D Nondisplaced fracture of distal phalanx of left thumb, subsequent encounter for fracture with routine healing (principal); M79.642 Pain in left hand; X58.XXXD Exposure to other specified factors, subsequent encounter
CPT/HCPCS: 73130; 99212

== ENCOUNTER 2023-11-07 13:09 | Outpatient (AMB) | payer OTHER, MEDICAID, SELFPAY ==
[2023-11-07 13:27] VITALS: BMI 43.0
--- NOTE | 2023-11-07 13:27 | A.OFFVIS_ITS ---
Intake Vital Signs 11/07/23 13:27 Height 5 ft 3 in Weight 243 lb BMI 43.0 Intake Visit Reasons: OV-left thumb fx Intake Note: Maria Elena is a 38 year old right hand dominant female who presents today for a follow up of her left thumb fx, DOI 09/12/23. Patient reports that she has gotten almost all motion back except she cannot bend her thumb all the way. Allergies Seasonal Allergies Allergy (Intermediate, Verified 11/07/23 13:28) sinus infections, asthma HPI OV-left thumb fx HPI Details 38-year-old right hand dominant female rosi cullen presents in the office today for a follow up of her left thumb fracture, S/P fall, DOI: 09/12/23. This is a workers comp visit. I last saw the patient in the office on 10/08/2023 she was placed in a thumb spica splint and was referred to occupational therapy to work on gentle ROM. The patient reports she has gained almost all her ROM back, except she can not bend her thumb all the way. [facility] Medical History Idiopathic hirsutism Migraines Moderate recurrent major depression Allergic rhinitis Mild persistent asthma Surgical History History of wisdom tooth extraction Family History Father No problems noted. Mother No problems noted. Brother No problems noted. Sister No problems noted. Social History Housing: Apartment Alcohol intake: current Alcohol intake frequency: holidays/special occasions only Alcohol type: wine Patient Tobacco Use Status: Never used Tobacco e-Cigarette/Vaping Use: Never Used Second Hand Smoke Exposure: No service: No Current occupational status: employed Current occupation: [employer] Current occupational exposures/hazards: No Gender identity: Female Cognitive needs: No Hearing needs: No Vision needs: No Female Reproductive History Menstrual Age of Menarche: 13 Review of Systems Const All systems reviewed & are unremarkable except as noted in HPI and below Physical Exam Vital Signs: BMI result Body Mass Index 43.0 Const General: cooperative, healthy appearing and no acute distress Orientation/consciousness: patient oriented x3 HEENT Head: Yes normocephalic and Yes atraumatic Eyes EOM: EOMs intact bilaterally Resp Effort & Inspection: normal respiratory effort and able to speak in complete sentences Cardio Jugular venous distension: no JVD Rate: regular rate Peripheral pulses: Peripheral pulses 2+ throughout GI Palpation (GI): Soft to palpation Skin General skin exam: turgor normal Lesions: no lesions Rashes: no rashes Neuro General: patient oriented x3 Extrem Other: Left thumb: No TTP at the IP joint or distally at the fracture site. She is able to make a full fist. She is able to perform full extension. She has slight stiffness at the IP joint. Sensation intact. Cap refill brisk Psych Appearance: grossly normal Affect: normal affect Attitude: cooperative Assessment & Plan Assessment & Plan (1) Fracture of distal phalanx of left thumb: Code(s): S62.522A - Displaced fracture of distal phalanx of left thumb, initial encounter for closed fracture Qualifiers: Encounter type: subsequent encounter Fracture alignment: nondisplaced Fracture healing: with routine healing Fracture type: closed Qualified Code(s): S62.525D - Nondisplaced fracture of distal phalanx of left thumb, subsequent encounter for fracture with routine healing Plan Ms. Jayden Solorio is a 38-year-old right hand dominant female who presents in the office today for a follow up of her left thumb fracture, S/P fall, DOI: 09/12/23. This is a workers comp visit. I last saw the patient in the office on 10/08/2023 she was placed in a thumb spica splint and was referred to occupational therapy to work on gentle ROM. The patient reports she has gained almost all her ROM back, except she can not bend her thumb all the way. The patient may discontinue the use of all splinting devices at this time. She may return to normal activities as tolerated. She should continue to work on ROM. Follow up will be PRN, or sooner if needed. X-rays of the left hand which were obtained while in the office today and were reviewed by me, Keila Ca PA-C, revealed a healed distal phalanx fracture of the left thumb. Orders: Orders XR hand LT min 3V Today M79.643 - Pain in unspecified hand Patient Instructions: Scribed for Keila Ca PA-C by Tata Knowles auditor medical claims, on 11/07/2023 at 1:14 pm, EST. Coding Level of Care Code Global (89961) Diagnoses Closed nondisplaced fracture of distal phalanx of left thumb with routine healing, subsequent encounter S62.525D Encounter type: subsequent encounter Fracture alignment: nondisplaced Fracture healing: with routine healing Fracture type: closed
== END 2023-11-07 13:47 | disposition home or self-care (01) ==
PROVIDERS: PCP Internal Medicine; Visit Provider Physician Assistant
DX: S62.525D Nondisplaced fracture of distal phalanx of left thumb, subsequent encounter for fracture with routine healing (principal)
CPT/HCPCS: 99024

== ENCOUNTER 2024-02-20 16:47 | Outpatient (AMB) | payer OTHER, SELFPAY ==
[2024-02-20 16:57] VITALS: BP 142/90; BMI 43.7
--- NOTE | 2024-02-20 16:57 | MHC.PC.OV ---
Vital Signs 02/20/24 16:57 02/22/24 10:18 Height 5 ft 3 in Weight 247 lb BMI 43.7 BP 142/90 H 140/90 H Blood Pressure Location Lt brachial Lt brachial Position Sitting Sitting Intake Visit Reasons: bp Intake Note: Patient here for a follow up BP Psychiatric Rn Required: No Accompanied by: Self / Same As Patient Allergies Seasonal Allergies Allergy (Intermediate, Verified 02/20/24 17:11) sinus infections, asthma Medication List - Last Reconciled 02/20/24 by Daisy Espinoza MD albuterol sulfate 90 mcg/actuation 1 inh inhalation QID PRN cetirizine (Wal-Zyr (cetirizine)) 10 mg PO DAILY PRN levalbuterol tartrate 45 mcg/actuation (Xopenex HFA) 2 puffs inhalation Q4-6H PRN 30 days losartan 25 mg PO DAILY 90 days valacyclovir (Valtrex) 1,000 mg PO TID 7 days Tobacco use date assessed: 02/20/24 Dental Screening Dental Screen Date: 02/20/24 Did you have a dental visit in the last 12 months?: Yes Did you have a dental problem in the last 6 months where you did not have access to dental care?: No Was dental information given to patient?: Patient has dentist HPI HPI Comments History of Present Illness Details This is a 38-year-old female with essential hypertension, PCOS, mild asthma, morbid obesity, moderate recurrent major depression in remission and allergic rhinitis that comes today for follow-up on her conditions. Blood pressure is still elevated and I will add spironolactone to also help with the PCOS. Blood pressure will be recheck in 3 weeks by nurse. On Xopenex for her asthma that she use occasionally. She is morbidly obese with a BMI of 43.8 and was advised to do diet and exercise to reach BMI goal less than 30. Her depression is in remission therefore no need for medications. On antihistamines for her allergic rhinitis. No chest pain or shortness of breath. [facility] Medical History (Updated 02/20/24 @ 17:19 by Daisy Espinoza MD) Idiopathic hirsutism Migraines Moderate recurrent major depression Allergic rhinitis Mild persistent asthma Surgical History History of wisdom tooth extraction Family History Father No problems noted. Mother No problems noted. Brother No problems noted. Sister No problems noted. 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 1. Little interest or pleasure in doing things: not at all 2. Feeling down, depressed, or hopeless: not at all 3. Trouble falling or staying asleep, or sleeping too much: several days 4. Feeling tired or having little energy: several days 5. Poor appetite or overeating: not at all 6. Feeling bad about yourself - or that you are a failure or have let yourself or your family down: not at all 7. Trouble concentrating on things, such as reading the newspaper or watching television: not at all 8. Moving or speaking so slowly that other people could have noticed. Or the opposite - being so fidgety or restless that you have been moving around a lot more than usual: not at all 9. Thoughts that you would be better off or of hurting yourself in some way: not at all Total score: 2 Depression Screening Interpretation: Negative Depression Screening Done: Yes 12926 - PHQ-9 Billing: Yes Source: Developed by Drs. Edilberto Song, Viv Rodriguez, Shad Trivedi and colleagues, with an educational jessica from [employer]. Thrive Questionnaire Date Thrive assessed: 02/20/24 I am a: Patient What is your living situation today?: I have a steady place to live Within the past 12 months, did the food you bought not last and you didn't have the money to get more?: Never true Within the past 12 months, did you worry whether your food would run out before you got money to buy more?: Never true Do you have trouble paying for medicines?: No Do you have trouble getting transportation to medical appointments?: No Do you have trouble paying your heating and electricity bill?: No Do you have trouble taking care of your child, family member or friend?: No Do you have trouble with day-to-day activities such as bathing, preparing meals, shopping, managing finances, etc.?: No Are you currently unemployed and looking for a job?: No Are you interested in more education?: No Please select the resources that you would like help with: None Currently or been in a relationship where the following occur: no concerns reported THRIVE Score: 0 AUDIT C Alcohol Use Questionnaire (AUDIT-C) 1. How often do you have a drink containing alcohol?: Monthly or less 2. How many drinks containing alcohol do you have on a typical day when you are drinking?: 1 or 2 3. How often do you have six or more drinks on one occasion?: Never Total Score: 1 Score Reviewed/Action Taken: No NATE-7 AMB Questionnaire NATE-7 Date NATE - 7 assessed: 02/20/24 Feeling nervous, anxious, or on edge: 1 = Several days Not being able to stop or control worryin = Not at all Worrying too much about different things: 0 = Not at all Trouble relaxin = Not at all Being so restless that it is hard to sit still: 0 = Not at all Becoming easily annoyed or irritable: 0 = Not at all Feeling afraid as if something awful might happen: 0 = Not at all Total NATE-7 score (0-4 normal; 5-9 mild; 10-14 moderate; 15-21 severe): 1 Source: Developed by Drs. Edilberto Song, Viv Rodriguez, Shad Trivedi and colleagues, with an educational jessica from [employer]. NATE-7 Assessment Billing NATE-7 Assessment Tool: NATE-7 Assessment 02331 Review of Systems Const All systems reviewed & are unremarkable except as noted in HPI and below Eyes Reports no additional complaints, Denies change in vision and Denies other visual disturbances Card Denies chest pain at rest, Denies chest pain with activity, Denies edema, Denies irregular heart rhythm, Denies claudication, Denies dyspnea, Denies dyspnea on exertion, Denies orthopnea, Denies paroxysmal nocturnal dyspnea and Denies slow heart rate Resp Denies cough, Denies dyspnea and Denies dyspnea on exertion Physical exam (Primary Care) Vital Signs: Last Vital Signs BP 142/90 H 02/20/24 16:57 BMI result Body Mass Index 43.7 Tobacco/Smoking Status: Tobacco use Status Tobacco use date assessed 02/20/24 02/20/24 17:04 Patient Tobacco Use Status Never used Tobacco 02/20/24 17:04 e-Cigarette/Vaping Use Never Used 02/20/24 17:04 PHQ-9: PHQ-9 Score PHQ-9: Total score 2 02/20/24 17:13 Depression Screening Interpretation: Negative Thrive Assessment: Date of Thrive Assessment Date Thrive assessed 02/20/24 02/20/24 17:04 Currently or been in a relationship where the following occur: no concerns reported Resp Effort & Inspection: normal respiratory effort Auscultation: clear to auscultation bilaterally Cardio Jugular venous distension: no JVD Rate: regular rate Rhythm: regular rhythm Heart sounds: S1 normal heart sound present and S2 normal heart sound present Extrem General: Yes full ROM Assessment and Plan Assessment & Plan (1) Essential hypertension: Code(s): I10 - Essential (primary) hypertension Plan: Continue losartan. Start spironolactone. Recheck blood pressure with nurse in 3 weeks. Blood pressure goal is equal or less than 130/80. (2) PCOS (polycystic ovarian syndrome): Code(s): E28.2 - Polycystic ovarian syndrome Plan: Start spironolactone. Labs ordered. (3) Obesity, morbid, BMI 40.0-49.9: Code(s): E66.01 - Morbid (severe) obesity due to excess calories Plan: Advised to do diet and exercise. BMI goal is less than 30. Declines weight loss surgery at the moment. (4) Moderate recurrent major depression: Code(s): F33.1 - Major depressive disorder, recurrent, moderate Plan: In remission. No need for medication. (5) Mild persistent asthma: Code(s): J45.30 - Mild persistent asthma, uncomplicated Plan: Use rescue inhaler as needed. (6) Allergic rhinitis: Code(s): J30.9 - Allergic rhinitis, unspecified Plan: Continue antihistamines as needed. Orders: Orders Comprehensive [place]. Panel Fast 02/20/24 I10 - Essential (primary) hypertension 17 Hydroxyprogesterone 02/20/24 E28.2 - Polycystic ovarian syndrome Testosterone, Free/Total 02/20/24 E28.2 - Polycystic ovarian syndrome Progesterone 02/20/24 E28.2 - Polycystic ovarian syndrome 21 Hydroxylase Antibody 02/20/24 E28.2 - Polycystic ovarian syndrome US pelvic and transvaginal 02/20/24 E28.2 - Polycystic ovarian syndrome Lipid Panel 02/20/24 I10 - Essential (primary) hypertension Referrals Endocrinology Referral E28.2 - Polycystic ovarian syndrome Medications: New losartan 25 mg PO DAILY 90 tabs 0RF 90 days spironolactone 25 mg PO DAILY 90 tabs 0RF 90 days Discontinued losartan Discontinued Reason: Patient Completed Course 25 mg PO DAILY 90 days 90 tabs 0RF I10 - Essential (primary) hypertension Coding Level of Care Code Est Pt Level 4 (85347) Diagnoses Essential hypertension I10 PCOS (polycystic ovarian syndrome) E28.2 Obesity, morbid, BMI 40.0-49.9 E66.01 Moderate recurrent major depression F33.1 Mild persistent asthma J45.30 Allergic rhinitis J30.9 Additional Codes NATE-7 Assessment Billing - NATE-7 Assessment Tool: NATE-7 Assessment 27131 ([id number]) Time Spent (min) 23
[2024-02-22 10:18] VITALS: BP 140/90
== END 2024-02-20 17:32 | disposition home or self-care (01) ==
PROVIDERS: PCP Internal Medicine; Visit Provider Internal Medicine
DX: I10 Essential (primary) hypertension (principal); E66.01 Morbid (severe) obesity due to excess calories; F33.1 Major depressive disorder, recurrent, moderate; Z68.41 Body mass index [BMI] 40.0-44.9, adult; E28.2 Polycystic ovarian syndrome; J45.30 Mild persistent asthma, uncomplicated; J30.9 Allergic rhinitis, unspecified
CPT/HCPCS: 99214

== ENCOUNTER 2024-02-28 16:03 | Outpatient (REF) | payer OTHER, SELFPAY ==
--- NOTE | ~2024-02-28 | US_ITS ---
EXAMINATION: US PELVIS CLINICAL INFORMATION: Polycystic ovarian syndrome. COMPARISON: Pelvic ultrasound 06/12/2021. TECHNIQUE: Ultrasound of the pelvis is performed using both transabdominal and transvaginal transducers along with Doppler. Transvaginal imaging is performed due to inadequate visualization transabdominally. FINDINGS: Uterus: The uterus is anteverted and measures 8.1 x 3.0 x 4.2 cm. 1.3 cm broad subserosal fibroid posterior fundus is decreased in size. 2.1 cm posterior lower uterine segment/cervical fibroid is stable. New newly apparent 1.2 cm intramural fibroid in the right fundus. The double wall endometrial thickness is 2 mm. The IUD appears appropriately positioned. Adnexa: The right ovary measures 3.6 x 2.2 x 2.4 cm, volume 10 mL. The antral follicle count appears to be approximately 3. Color Doppler appears normal. The left ovary measures 3.2 x 2.4 x 2.8 cm, volume 11.2 mL. The antral follicle count appears to be approximately 3. Color Doppler appears normal. US/US pelvic and transvaginal IMPRESSION: Ovarian volumes 10-11 mL. Follicle count appears normal. Fibroid uterus.
== END 2024-02-28 16:04 | disposition home or self-care (01) ==
LOC: HO.US 16:03
PROVIDERS: PCP Internal Medicine; Visit Provider Internal Medicine
DX: E28.2 Polycystic ovarian syndrome (principal)
CPT/HCPCS: 76830; 76856

== ENCOUNTER 2024-07-01 17:14 | Outpatient (AMB) | payer OTHER, SELFPAY ==
--- NOTE | 2024-07-01 17:19 | A.OFFPC_ITS ---
Vital Signs 07/01/24 17:20 Height 5 ft 3 in Weight 249 lb 6 oz BMI 44.2 BP 142/100 H Blood Pressure Location Lt brachial Position Sitting Pulse 80 Pulse Source Pulse Oximeter Pulse Oximetry (%) 99 Oxygen Delivery Method Room Air Intake Visit Reasons: 4MOF\[id number] Vacuum System Tester Required: No Accompanied by: Self / Same As Patient Allergies Seasonal Allergies Allergy (Intermediate, Verified 07/01/24 17:25) sinus infections, asthma Medication List - Last Reconciled 07/01/24 by Daisy Espinoza MD albuterol sulfate 90 mcg/actuation 1 inh inhalation QID PRN cetirizine (Wal-Zyr (cetirizine)) 10 mg PO DAILY PRN levalbuterol tartrate 45 mcg/actuation (Xopenex HFA) 2 puffs inhalation Q4-6H PRN 30 days losartan 25 mg PO DAILY 90 days spironolactone 25 mg PO DAILY 90 days valacyclovir (Valtrex) 1,000 mg PO TID 7 days Tobacco use date assessed: 02/20/24 Dental Screening Dental Screen Date: 02/20/24 HPI HPI Comments History of Present Illness Details This is a 39-year-old female with hypertension, morbid obesity, moderate recurrent major depression and PCOS that comes today for follow-up on her conditions. Blood pressure elevated today but she did not took 1 of the medications. She will recheck her blood pressure at home for few weeks. She is morbidly obese with a BMI of 44.2 and has cardiovascular risk factors therefore will benefit from Wegovy. Side effects were advised. Depression has been somewhat stable and in remission. On spironolactone for her PCOS. Denies any chest pain or shortness on breath. [facility] Medical History (Updated 02/20/24 @ 17:19 by Daisy Espinoza MD) Idiopathic hirsutism Migraines Moderate recurrent major depression Allergic rhinitis Mild persistent asthma Surgical History History of wisdom tooth extraction Family History Father No problems noted. Mother No problems noted. Brother No problems noted. Sister No problems noted. 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 Edilberto Song, Viv Rodriguez, Shad Trivedi and colleagues, with an educational jessica from [employer]. Review of Systems Const All systems reviewed & are unremarkable except as noted in HPI and below Card Denies chest pain at rest, Denies chest pain with activity, Denies edema, Denies irregular heart rhythm, Denies claudication, Denies dyspnea, Denies dyspnea on exertion, Denies orthopnea, Denies paroxysmal nocturnal dyspnea and Denies slow heart rate Resp Denies cough, Denies dyspnea and Denies dyspnea on exertion GI Denies abdominal pain, Denies change in bowel habits, Denies excessive flatus, Denies nausea and Denies vomiting Denies urinary incontinence, Denies urinary hesitancy and Denies urinary urgency Musc Denies abnormal gait, Denies atrophy, Denies deformity and Denies limited range of motion Skin/Breast Denies bleeding lesions, Denies changing lesions and Denies rash Neuro Denies abnormal gait, Denies behavioral changes and Denies lack of coordination Psych Denies behavioral changes Physical exam (Primary Care) Vital Signs: Last Vital Signs Pulse 80 07/01/24 17:20 BP 142/100 H 07/01/24 17:20 Pulse Ox 99 07/01/24 17:20 Oxygen Delivery Method Room Air 07/01/24 17:20 BMI result Body Mass Index 44.2 BMI Assessment/Plan discussion: High BMI High, discussed plan: lifestyle, weight reduction, dietary and physical activity Tobacco/Smoking Status: Tobacco use Status Tobacco use date assessed 02/20/24 07/01/24 17:24 Patient Tobacco Use Status Never used Tobacco 07/01/24 17:24 e-Cigarette/Vaping Use Never Used 07/01/24 17:24 Thrive Assessment: Date of Thrive Assessment Date Thrive assessed 02/20/24 07/01/24 17:24 Resp Effort & Inspection: normal respiratory effort Auscultation: clear to auscultation bilaterally Cardio Jugular venous distension: no JVD Rate: regular rate Rhythm: regular rhythm Heart sounds: S1 normal heart sound present and S2 normal heart sound present Extrem General: Yes full ROM Assessment and Plan Assessment & Plan (1) Essential hypertension: Code(s): I10 - Essential (primary) hypertension Plan: Continue lisinopril and spironolactone. Blood pressure goal is equal or less than 130/80. Recheck blood pressure at home. (2) Obesity, morbid, BMI 40.0-49.9: Code(s): E66.01 - Morbid (severe) obesity due to excess calories Plan: Start Wegovy. BMI goal is less than 30. (3) PCOS (polycystic ovarian syndrome): Code(s): E28.2 - Polycystic ovarian syndrome Plan: Continue spironolactone. (4) Moderate recurrent major depression: Code(s): F33.1 - Major depressive disorder, recurrent, moderate Plan: In remission. Medications: New semaglutide (weight loss) (Wegovy) administer weeks 1 through 4 of therapy 0.25 mg (0.5 mL) subcut QWEEK 4 weeks 2 mL 0RF E66.01 - Morbid (severe) obesity due to excess calories, I10 - Essential (primary) hypertension semaglutide (weight loss) (Wegovy) administer weeks 1 through 4 of therapy 0.25 mg (0.5 mL) subcut QWEEK 4 weeks 2 mL 0RF E66.01 - Morbid (severe) obesity due to excess calories, I10 - Essential (primary) hypertension Coding Level of Care Code Est Pt Level 4 (20825) Complex EM visit Add On G2211 Diagnoses Essential hypertension I10 Obesity, morbid, BMI 40.0-49.9 E66.01 PCOS (polycystic ovarian syndrome) E28.2 Moderate recurrent major depression F33.1 Time Spent (min) 23
[2024-07-01 17:20] VITALS: BP 142/100; PULSE 80; O2SAT 99; BMI 44.2
== END 2024-07-01 17:35 | disposition home or self-care (01) ==
PROVIDERS: PCP Internal Medicine; Visit Provider Internal Medicine
DX: I10 Essential (primary) hypertension (principal); E66.01 Morbid (severe) obesity due to excess calories; F33.1 Major depressive disorder, recurrent, moderate; Z68.41 Body mass index [BMI] 40.0-44.9, adult; E28.2 Polycystic ovarian syndrome
CPT/HCPCS: 99214

== ENCOUNTER 2024-07-31 15:24 | Outpatient (AMB) | payer OTHER, SELFPAY ==
[2024-07-31 15:27] VITALS: BP 122/86; BMI 44.1
--- NOTE | 2024-07-31 15:27 | A.OFFVIS_ITS ---
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 She tries to eat healthy and stays active with exercise. Irregular closely spaced bleeding, random pain on left side. Admits to vaginal odor. Currently is not sexually active. Current Mirena user inserted in 10/16/2021 for cycle control with history of PCOS. STI screening offered; she accepts. Denies family history of breast, ovarian or colon cancer. Last pap smear 2020, negative. REPLACED BY [facility] Medical History (Updated 07/31/24 @ 15:49 by Nicolette Rai CNM) Essential hypertension PCOS (polycystic ovarian syndrome) Idiopathic hirsutism Migraines Moderate recurrent major depression Allergic rhinitis Mild persistent asthma Surgical History History of wisdom tooth extraction Family History Father No problems noted. Mother No problems noted. Brother No problems noted. Sister No problems noted. Social History Housing: Apartment Alcohol intake: current Alcohol intake frequency: holidays/special occasions only Alcohol type: wine Patient Tobacco Use Status: Never used Tobacco e-Cigarette/Vaping Use: Never Used Second Hand Smoke Exposure: No service: No Current occupational status: employed Current occupation: [employer] Current occupational exposures/hazards: No Gender identity: Female Cognitive needs: No Hearing needs: No Vision needs: No Female Reproductive History Menstrual Age of Menarche: 13 Date of last menstrual period: 07/13/24 control method: progestin IUCD (Mirena 09/2021) Total pregnancies: 1 Review of Systems Const All systems reviewed & are unremarkable except as noted in HPI and below Reports as per HPI Eyes Reports no additional complaints ENT Reports no additional complaints Card Reports no additional complaints Resp Reports no additional complaints GI Reports as per HPI and Reports no additional complaints Reports as per HPI Musc Reports no additional complaints Skin/Breast Reports as per HPI Neuro Reports no additional complaints Psych Reports no additional complaints Endo Reports no additional complaints Rashaad/Lymph Reports no additional complaints Aller/Immun Reports no additional complaints Physical Exam Const General: cooperative, healthy appearing, no acute distress, well developed and alert Orientation/consciousness: patient oriented x3 HEENT Head: Yes normal to inspection Eyes General: appearance normal, both eyes and all related structures Neck Neck: Yes normal visual inspection Thyroid: Thyroid normal Chest Chest palpation & inspection: normal inspection of the chest and other (no puckering, dimpling, peau de orange, retraction, discharge, masses) Breast/axilla inspection: normal inspection of the breasts Breast/axilla palpation: normal palpation of the breasts Resp Effort & Inspection: normal respiratory effort GI Inspection: Yes normal to inspection Palpation (GI): Soft to palpation Rectal Exam - Female: deferred General: Yes bladder normal to palpation External Female Exam: normal external appearance and normal appearance of the urethra Speculum Exam - Vagina: normal appearance of the vagina, normal palpation and normal vaginal discharge Speculum Exam - Cervix: normal appearance of the cervix, normal palpation and Other cervical findings present (IUD strings at os, bled briskly with Pap) Bimanual exam- vagina & uterus: normal bimanual exam, normal palpation, uterine size normal, bladder normal to palpation, normal palpation and non-tender Bimanual Exam- Adnexa, other: no masses Skin General skin exam: no rashes or lesions noted Rashes: no rashes Neuro General: patient oriented x3 Cognition (Neuro): normal cognition Extrem General: Yes normal to inspection Psych Attitude: cooperative Thought process: Normal thought process present Results AMB Test Urine AMB Test Urine Negative Last Edit by BOB Krishnamurthy on 07/31/24 16:05 Assessment & Plan Assessment & Plan (1) Well woman exam with routine gynecological exam: Code(s): Z01.419 - Encounter for gynecological examination (general) (routine) without abnormal findings Category: Medical (2) Abnormal uterine bleeding (AUB): Code(s): N93.9 - Abnormal uterine and vaginal bleeding, unspecified Category: Medical (3) PCOS (polycystic ovarian syndrome): Code(s): E28.2 - Polycystic ovarian syndrome Category: Medical (4) Vaginal odor: Code(s): N89.8 - Other specified noninflammatory disorders of vagina (5) IUD surveillance: Code(s): Z30.431 - Encounter for routine checking of intrauterine contraceptive device Plan Discussed: Current recommendations for pap smears per ASCCP guidelines. Pap smear obtained. Breast awareness and periodic breast exams. Maintain a healthy lifestyle including a well balanced diet and routine exercise. Use condoms for STI and prevention. Plan workup for irregular bleeding to include CBC, TSH, pelvic ultrasound, possible endometrial biopsy. Advised to take 3 Advil with food 1 hour before procedure. Patient verbalizes understanding and agrees to the plan of care. She was given opportunity to ask questions and all questions were answered to the best of my ability. 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 This note is constructed using voice recognition software. While every effort has been made to ensure accuracy, retail sales merchandiser development errors may have been included. Orders: Orders US pelvic and transvaginal Today N93.9 - Abnormal uterine and vaginal bleeding, unspecified Thyroid Stimulating Hormone Today N92.1 - Excessive and frequent menstruation with irregular cycle, N93.9 - Abnormal uterine and vaginal bleeding, unspecified Complete Blood Count no Diff Today N93.9 - Abnormal uterine and vaginal bleeding, unspecified CT NG by PCR Today N93.9 - Abnormal uterine and vaginal bleeding, unspecified PAP + HPV E6/E7 rfx 18/45 Today N93.9 - Abnormal uterine and vaginal bleeding, unspecified AMB HCG Urine Test Today N93.9 - Abnormal uterine and vaginal bleeding, unspecified Bacterial Vaginosis Panel Today N93.9 - Abnormal uterine and vaginal bleeding, unspecified Coding Level of Care Code Est Pt Prev Care 18-39y(96190) Diagnoses Well woman exam with routine gynecological exam Z01.419 Abnormal uterine bleeding (AUB) N93.9 PCOS (polycystic ovarian syndrome) E28.2 Vaginal odor N89.8 IUD surveillance Z30.431
== END 2024-07-31 16:05 | disposition home or self-care (01) ==
PROVIDERS: PCP Internal Medicine; Visit Provider Advanced Practice Midwife
DX: Z01.419 Encounter for gynecological examination (general) (routine) without abnormal findings (principal); N93.9 Abnormal uterine and vaginal bleeding, unspecified; E28.2 Polycystic ovarian syndrome; N89.8 Other specified noninflammatory disorders of vagina; Z30.431 Encounter for routine checking of intrauterine contraceptive device
CPT/HCPCS: 99395

== ENCOUNTER 2024-07-31 15:24 | Outpatient (REF) | payer OTHER, SELFPAY | END 2024-07-31 15:25 | disposition home or self-care (01) | LOC: HO.LNP 15:24 | PROVIDERS: PCP Internal Medicine; Visit Provider Advanced Practice Midwife | DX: N93.9 Abnormal uterine and vaginal bleeding, unspecified (principal) | CPT/HCPCS: 81025 ==

== ENCOUNTER 2024-07-31 16:03 | Outpatient (REF) | payer OTHER, SELFPAY ==
[2024-07-31 17:11] LABS: Hematocrit 41.2 % (37.0-47.0); Hemoglobin 13.9 g/dl (12.0-16.0); Mean Corpuscular HGB Conc 33.7 g/dl (31.0-35.0); Mean Corpuscular Hemoglobin 30.5 pg (27.0-33.0); Mean Corpuscular Volume 90.5 fL (80.0-98.0); Mean Platelet Volume 9.1 fL (9.4-12.3); Platelet Count 359 X10*3/uL (160-400); Red Blood Count 4.55 X10*6/uL (4.20-5.50); White Blood Count 9.8 X10*3/uL (4.8-10.8)
[2024-07-31 18:15] LABS: Thyroid Stimulating Hormone 2.59 uIU/mL (0.32-4.0)
[2024-08-01 14:24] LABS: CT PCR NOT DETECTED (Not Detect.); NG PCR NOT DETECTED (Not Detect.)
[2024-08-02 09:03] LABS: Bacterial Vaginosis PCR NEGATIVE (Negative); Candida Group PCR DETECTED (Not Detect); Candida glab krusei PCR NOT DETECTED (Not Detect); Trichomonas vaginalis PCR NOT DETECTED (Not Detect)
[2024-08-05 08:59] LABS: HPV mRNA E6/E7 Not Detected (Not Detected)
== END 2024-07-31 16:04 | disposition home or self-care (01) ==
LOC: HO.LAB 16:03
PROVIDERS: PCP Internal Medicine; Visit Provider Advanced Practice Midwife
DX: N93.9 Abnormal uterine and vaginal bleeding, unspecified (principal); N92.1 Excessive and frequent menstruation with irregular cycle
CPT/HCPCS: 0352U; 36415; 84443; 85027; 87491; 87591; 87624; 88175

== ENCOUNTER 2024-08-19 16:29 | Outpatient (REF) | payer OTHER, SELFPAY ==
--- NOTE | ~2024-08-19 | US_ITS ---
EXAMINATION: US PELVIS CLINICAL INFORMATION: Abnormal uterine bleeding. COMPARISON: None available. TECHNIQUE: Ultrasound of the pelvis is performed using both transabdominal and transvaginal transducers along with Doppler. Transvaginal imaging is performed due to inadequate visualization transabdominally. FINDINGS: Uterus: The uterus is anteverted and measures 7.1 x 3.0 x 3.9 cm. The double wall endometrial thickness is 4 mm. An IUD is present in the endometrial canal in good position. The uterus is smooth in contour and has normal myometrial echogenicity. 3 fibroids are seen, one near the fundus measuring 1.8 cm with 2 in the lower uterine segment measuring 2.5 x 1.1 cc. Adnexa: Both ovaries are visualized. There is normal color flow to the adnexa. There is no ovarian torsion. There is no pelvic ascites or fluid collection. Right ovary measures 3.4 x 2.3 x 2.1 cm for a volume of 8.6 ml. Left ovary measures 3.6 x 2.4 x 2.1 cm for a volume of 9.5 mL. US/US pelvic and transvaginal IMPRESSION: 1. IUD in good position. 2. Uterine fibroids. Electronically signed by: Eduardo Wilson MD 10/06/2024 10:54 PM [facility]
== END 2024-08-19 16:30 | disposition home or self-care (01) ==
LOC: HO.US 16:29
PROVIDERS: PCP Internal Medicine; Visit Provider Advanced Practice Midwife
DX: N93.9 Abnormal uterine and vaginal bleeding, unspecified (principal)
CPT/HCPCS: 76830; 76856

== ENCOUNTER 2024-09-16 11:42 | Outpatient (REF) | payer OTHER, SELFPAY ==
[2024-09-16 18:11] LABS: Influenza A PCR NEGATIVE (Negative); Influenza B PCR NEGATIVE (Negative); Resp Syncy Virus RNA Qual PCR NEGATIVE (Negative); SARS COV2 PCR INHOUSE NEGATIVE (Negative)
== END 2024-09-16 11:43 | disposition home or self-care (01) ==
LOC: HO.LNP 11:42
PROVIDERS: PCP Internal Medicine; Visit Provider Physician Assistant
DX: J06.9 Acute upper respiratory infection, unspecified (principal)
CPT/HCPCS: 0241U

== ENCOUNTER 2024-09-16 11:42 | Outpatient (AMB) | payer OTHER, SELFPAY ==
--- NOTE | 2024-09-16 11:56 | MHC.OFFWIV ---
Intake Vital Signs 09/16/24 11:57 Height 5 ft 3 in Weight 252 lb BMI 44.6 BP 134/82 Blood Pressure Location Rt brachial Position Sitting Pulse 84 Pulse Source Pulse Oximeter Temp 98.6 F Temp Source Oral Pulse Oximetry (%) 98 Oxygen Delivery Method Room Air Intake Visit Reasons: EP ? sinus infection, sore throat Intake Note: Patient here for face pressure, bilat ear pain, mucus and cough since saturday. Patient Tobacco Use Status: Never used Tobacco Allergies Seasonal Allergies Allergy (Intermediate, Verified 09/16/24 11:58) sinus infections, asthma Do you need a note to return to daycare/school/sports/work: Yes HPI HPI Comments History of Present Illness Details Patient is a 39-year-old female with a past medical history of asthma complaining of 5 days of face pain, sinus pain, head congestion and ear fullness. She denies any fevers but does endorse some shortness of breath and a cough and she has been using her an albuterol inhaler more than typical. She is eating and drinking normally, she did not test for COVID and she lives alone so she has no sick contacts. 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 Patient states she has tried an [id number] Tylenol sinus medication but has not used a Neti pot or Flonase [facility] Medical History (Updated 09/16/24 @ 12:55 by Edita Gillis PA-C) Essential hypertension PCOS (polycystic ovarian syndrome) Idiopathic hirsutism Migraines Moderate recurrent major depression Allergic rhinitis Mild persistent asthma Surgical History History of wisdom tooth extraction Family History Father No problems noted. Mother No problems noted. Brother No problems noted. Sister No problems noted. Social History Housing: Apartment Alcohol intake: current Alcohol intake frequency: holidays/special occasions only Alcohol type: wine Patient Tobacco Use Status: Never used Tobacco e-Cigarette/Vaping Use: Never Used Second Hand Smoke Exposure: No service: No Current occupational status: employed Current occupation: [employer] Current occupational exposures/hazards: No Gender identity: Female Cognitive needs: No Hearing needs: No Vision needs: No Female Reproductive History Menstrual Age of Menarche: 13 Review of Systems Const All systems reviewed & are unremarkable except as noted in HPI and below Physical Exam Vital Signs: Last Vital Signs Temp 98.6 F 09/16/24 11:57 Pulse 84 09/16/24 11:57 BP 134/82 09/16/24 11:57 Pulse Ox 98 09/16/24 11:57 Oxygen Delivery Method Room Air 09/16/24 11:57 BMI result Body Mass Index 44.6 Const General: cooperative, healthy appearing, comfortable and no acute distress Orientation/consciousness: patient oriented x3 Limitations: no limitations HEENT Head: Yes normal to inspection Ears: hearing grossly normal bilaterally, external ears normal and TM's normal bilaterally (Some erythema but no infection bilaterally) General nose exam: Normal external nose present, Normal nares present and No nasal discharge present Face and sinus: Yes normal facial exam and Yes sinus tenderness (Bilateral maxillary) Mouth: Normal oral and palatal mucosa present and moist mucous membranes Throat: Yes tonsils normal, Yes uvula midline and Yes posterior oropharynx abnormal (Erythema) Eyes General: appearance normal, both eyes and all related structures Neck Neck: Yes normal visual inspection Resp Effort & Inspection: normal respiratory effort, able to speak in complete sentences, Actively coughing, no respiratory distress, not tachypneic, no tripod positioning and no use of accessory muscles Auscultation: clear to auscultation bilaterally Cardio Rate: regular rate Rhythm: regular rhythm Heart sounds: normal S1 and S2 Skin General skin exam: no rashes or lesions noted Neuro General: patient oriented x3 Extrem General: Yes normal to inspection and Yes no clubbing, cyanosis or edema Assessment & Plan Assessment & Plan (1) Sinusitis, acute: Code(s): J01.90 - Acute sinusitis, unspecified Qualifiers: Sinusitis location: maxillary Recurrence: non-recurrent Qualified Code(s): J01.00 - Acute maxillary sinusitis, unspecified Plan: Vital signs are stable, patient well-appearing, recommended she use a Neti pot, Flonase or nasal saline spray. Recommended she continue her daily allergy pill We did test for flu COVID and RSV, educated patient that most sinus infections are viral and this will likely pass in the next 1-2 weeks but it could linger a little bit longer. I will send low-dose prednisone burst to her pharmacy to help clear up her head congestion. Plan See above Medications: New prednisone 20 mg PO DAILY 5 tabs 0RF Coding Level of Care Code Est Pt Level 3 (21430) Diagnoses Acute non-recurrent maxillary sinusitis J01.00 Sinusitis location: maxillary Recurrence: non-recurrent
[2024-09-16 11:57] VITALS: BP 134/82; PULSE 84; TEMP 37; O2SAT 98; BMI 44.6
== END 2024-09-16 13:09 | disposition home or self-care (01) ==
PROVIDERS: PCP Internal Medicine; Visit Provider Physician Assistant
DX: J01.00 Acute maxillary sinusitis, unspecified (principal)

== ENCOUNTER 2024-11-03 11:31 | Outpatient (AMB) | payer OTHER, SELFPAY ==
--- NOTE | 2024-11-03 11:34 | MHC.OFFVIS ---
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 She denies any pelvic pain presently and reports that her last cycle was normal. [facility] Medical History Fibroid IUD (intrauterine device) in place Essential hypertension PCOS (polycystic ovarian syndrome) Idiopathic hirsutism Migraines Moderate recurrent major depression Allergic rhinitis Mild persistent asthma Surgical History History of wisdom tooth extraction Family History Father No problems noted. Mother No problems noted. Brother No problems noted. Sister No problems noted. 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[employer] Current occupational exposures/hazards: No Gender identity: Female Cognitive needs: No Hearing needs: No Vision needs: No Female Reproductive History Menstrual Age of Menarche: 13 Review of Systems Const All systems reviewed & are unremarkable except as noted in HPI and below Endo Reports no additional complaints Physical Exam Const General: cooperative, healthy appearing and no acute distress Psych Appearance: well kempt Attitude: cooperative Thought process: Normal thought process present Results Reviewed Results Reviewed: [address] [address] Ultrasound Report Signed Patient: Steven Doan MR#: [id number] : 06/16/1967 Acct:[id number] Age/Sex: 57 / F ADM Date: 09/30/24 Loc: HO.US Attending Dr: Shantel Joe PA-C Ordering Physician: Shantel Joe Date of Service: 09/30/24 Procedure(s): US pelvic and transvaginal Accession Number(s): [id number] cc: Shantel Joe~ EXAMINATION: US PELVIS CLINICAL INFORMATION: Excessive bleeding, postmenopausal bleeding, spotting for 3 weeks, no previous imaging, patient denies pain. COMPARISON: None available. TECHNIQUE: Ultrasound of the pelvis is performed using both transabdominal and transvaginal transducers along with Doppler. Transvaginal imaging is performed due to inadequate visualization transabdominally. FINDINGS: Anteverted uterus measures 7.7 x 4.8 x 5.4 cm. LEFT ovary not visualized. Limited visualization due to bowel gas and body habitus. RIGHT ovary measures 1.9 x 0.9 x 2.5 cm, volume 2.3 mL. 0.7 x 0.5 x 0.7 cm RIGHT ovarian cyst. A 1.9 x 1.2 x 1.3 cm RIGHT adnexal cyst. No significant free fluid. Nabothian cysts in the cervix. Endometrium appears abnormal for a patient with postmenopausal bleeding with endometrial thickness of 19 mm and heterogeneous appearance with tiny cystic spaces. Gynecologic consultation recommended to determine further management including possible biopsy. US/US pelvic and transvaginal IMPRESSION: 1. Endometrium appears abnormal for a patient with postmenopausal bleeding with endometrial thickness of 19 mm and heterogeneous appearance with tiny cystic spaces. Gynecologic consultation recommended to determine further management including possible biopsy. 2. LEFT ovary not visualized. Limited visualization due to bowel gas and body habitus. 3. A 0.7 cm RIGHT ovarian cyst. 4. A 1.9 cm RIGHT adnexal cyst. This study was presented to me on November 02, 2023 for interpretation. PSA staff will provide results to referring provider at this time. Electronically signed by: Cindy Quiroz MD 11/02/2024 06:01 AM [facility] Dictated By: Cindy Quiroz MD Signed By: <Electronically signed by Cindy Quiroz MD in OV> 11/02/24 0601 DD/ 1438 TD/TT: 09/30/24 1510 Bag Checker: Assessment & Plan Assessment & Plan (1) Encounter to discuss test results: Code(s): Z71.2 - Person consulting for explanation of examination or test findings (2) Fibroid: Code(s): D21.9 - Benign neoplasm of connective and other soft tissue, unspecified (3) IUD (intrauterine device) in place: Code(s): Z97.5 - Presence of (intrauterine) contraceptive device Plan Discussed: Ultrasound findings-new fibroid, total 3, benign ovarian cysts, IUD in place. Counseled re: Leiomyoma: common pelvic neoplasm. Differential diagnosis-may include but not limited to- leiomyosarcoma which is a rare uterine sarcoma 3-7/100,000, difficult to distinguish from fibroids on ultrasound from uterine sarcoma's. Unlikely any single test will have a highly positive predictive value. Hysterectomy is not recommended for sole purpose of excluding malignant neoplasm. Consult for surgical exploration, medical treatment, other treatments, verses expectant management, pros and cons, risks and benefits. Expectant management follow up in 6 months, then yearly for stability. Report any AUB, pelvic pressure, bloating, or pain. Referral to MD if indicated for level of care if indicated. The patient expressed understanding and agreement with the plan of care. All of her questions and concerns were addressed to the best of my ability. This note is constructed using voice recognition software. While every effort has been made to ensure accuracy, managing partner digital content marketing [place] errors may have been included. Orders: Orders US pelvic and transvaginal 03/08/25 D21.9 - Benign neoplasm of connective and other soft tissue, unspecified, Z97.5 - Presence of (intrauterine) contraceptive device Coding Level of Care Code Est Pt Level 3 (39059) Diagnoses Encounter to discuss test results Z71.2 Fibroid D21.9 IUD (intrauterine device) in place Z97.5
== END 2024-11-03 12:14 | disposition home or self-care (01) ==
LOC: HO.HWS 11:31
PROVIDERS: PCP Internal Medicine; Visit Provider Advanced Practice Midwife
DX: Z71.2 Person consulting for explanation of examination or test findings (principal); D21.9 Benign neoplasm of connective and other soft tissue, unspecified; Z97.5 Presence of (intrauterine) contraceptive device
CPT/HCPCS: 99213

== ENCOUNTER 2024-12-31 15:08 | Outpatient (AMB) | payer OTHER, SELFPAY ==
[2024-12-31 15:10] VITALS: BP 130/78; PULSE 90; TEMP 36.8; O2SAT 98
--- NOTE | 2024-12-31 15:10 | MHC.OFFWIV ---
Intake Vital Signs 12/31/24 15:10 Height 5 ft 3 in BP 130/78 Blood Pressure Location Lt brachial Position Sitting Pulse 90 Pulse Source Pulse Oximeter Temp 98.3 F Temp Source Oral Pulse Oximetry (%) 98 Oxygen Delivery Method Room Air Intake Visit Reasons: EP-flu symptoms, fever, diarrhea Patient Tobacco Use Status: Never used Tobacco Allergies Seasonal Allergies Allergy (Intermediate, Verified 12/31/24 15:10) sinus infections, asthma Do you need a note to return to daycare/school/sports/work: No HPI HPI Comments History of Present Illness Details History - The patient is a 39-year-old female presenting with flu-like symptoms and sinus pain. - Symptoms began on Saturday, with current illness on day three, involving a fever of 100.7?F, stomach cramps, and nocturnal diarrhea, with slight improvement noted today. - Ear and sinus discomfort reported, affecting primarily the right sided sinus. - Has pre-existing asthma, currently managed with a home inhaler, but no current respiratory distress. - The patient has been self-managing symptoms with Tylenol and plans to use ibuprofen for body aches. - Ggie-azc-sprinfq treatments for sinus symptoms include Flonase and Rika D. - Has been attempting bland dietary adjustments to manage gastrointestinal symptoms. - The absence from work due to health concerns linked to her illness. Physical Exam General: Cooperative, healthy appearing, comfortable and no acute distress Orientation/consciousness: Patient oriented x3 Limitations: No limitations Head: Normal to inspection Ears: Hearing grossly normal bilaterally, external ears normal and TM's normal bilaterally Nose: Normal external nose present, Normal nares present and No nasal discharge present Face and sinus: Normal facial exam and maxillary sinus ttp on the right side Mouth: Normal oral and palatal mucosa present and moist mucous membranes Throat: Yes tonsils normal, Yes uvula midline. Posterior oropharynx erythema Eyes: Appearance normal, both eyes and all related structures Neck: Normal visual inspection Respiratory: Clear to auscultation bilaterally. Normal respiratory effort, able to speak in complete sentences, Actively coughing, no respiratory distress, not tachypneic, no tripod positioning and no use of accessory muscles Cardiovascular: Regular rate and rhythm. Normal S1 and S2 Skin: No rashes or lesions noted Neuro: Patient oriented x3 Extremities: Normal to inspection and Yes no clubbing, cyanosis or edema [facility] Medical History Fibroid IUD (intrauterine device) in place Essential hypertension PCOS (polycystic ovarian syndrome) Idiopathic hirsutism Migraines Moderate recurrent major depression Allergic rhinitis Mild persistent asthma Surgical History History of wisdom tooth extraction Family History Father No problems noted. Mother No problems noted. Brother No problems noted. Sister No problems noted. 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[employer] Current occupational exposures/hazards: No Gender identity: Female Cognitive needs: No Hearing needs: No Vision needs: No Female Reproductive History Menstrual Age of Menarche: 13 Review of Systems Const All systems reviewed & are unremarkable except as noted in HPI and below Physical Exam Vital Signs: Last Vital Signs Temp 98.3 F 12/31/24 15:10 Pulse 90 12/31/24 15:10 BP 130/78 12/31/24 15:10 Pulse Ox 98 12/31/24 15:10 Oxygen Delivery Method Room Air 12/31/24 15:10 Assessment & Plan Assessment & Plan (1) Acute viral syndrome: Code(s): B34.9 - Viral infection, unspecified Plan: VSS, pt well appearing and PE unremarkable. Influenza A is suspected, but pt is beyond the 72hr treatment window for Tamiflu. Symptomatic management includes ensuring adequate hydration and rest, with Tylenol and ibuprofen for relief of fever and body aches. For sinusitis-related symptoms, the use of Flonase and Rika D is recommended. The patient's asthma is stable with ongoing inhaler use as needed. Dietary adjustments should continue to manage gastrointestinal symptoms. Attendance issues related to her illness may be addressed with documentation for her employer, noting her time away from work. Patient was informed and verbally consented to the use of an ambient scribe for clinic note documentation during this visit Orders: Orders SARS-CoV2/FLU/RSV Today R09.89 - Other specified symptoms and signs involving the circulatory and respiratory systems Coding Level of Care Code Est Pt Level 3 (86549) Diagnoses Acute viral syndrome B34.9
--- OUTSIDE RECORDS SUMMARY | 2024-12-31 18:39 | XMS_ITS | Clinical Summary ---
Author Organization [facility] it Address [address] [place] [address] Care Team Providers Care Fabrication Specialist Name Role Phone Lorie Henderson MD Primary Care Provider Unava ilable Surgical History Surgery Date Site/Laterality Comments WISDOM TOOTH EXTRACTION PROCEDURE: HISTORICAL WISDOM TEETH EXTRACTION OTHER SURGICAL HISTORY 2011 PROCEDURE: HISTORICAL D&C Medical History Medical History Date Comments GERD (gastroesophageal reflux disease) 01/11/2017 DX:GERD (gastroesophageal reflux disease) Migraines 01/11/2017 DX:Migraines Insomnia 01/11/2017 DX:Insomnia Family History Medical History Relation Name Comments Alzheimer's disease Aunt 1 Paternal and maternal aunts Migraines Aunt 2 Diabetes Father's side Paternal great -grandmother Hypertension Maternal Grandmother Breast cancer Neg Hx Colon cancer Neg Hx Ovarian cancer Neg Hx Relation Name Status Comments Aunt 1 Aunt 2 Father's side Maternal Grandmother Social History Tobacco Use Types Packs/Day Years Used Date Smoking Tobacco: Never Smokeless Tobacco: Never Alcohol Use Standard Drinks/Week Comments Yes 0 (1 standard drink = 0.6 oz pur e alcohol) Comments Unknown Sex and Gender Information Value Date Recorded Sex Assigned at Not on file Legal Sex Female 12:21 AM EST Gender Identity Not on file Sexual Orientation Not on file Obstetrics History Plan of Treatment Health Maintenance Due Date Last Done Comments DTaP,Tdap,and Td Vaccines (1 - Tdap) 2006 Hepatitis B Vaccines (1 of 3 - 19+ 3-dose series) 2006 Cervical Cancer Screening: P ap Smear 2008 COVID-19 Vaccine (2023-2 5 season) 2024 Influenza Vaccine (#1) 2024 08/04/2017 HIB Vaccines Aged Out No longer eligi ble based on patient's age to complete this topic HPV Vaccines Aged Out No longer eligi ble based on patient's age to complete this topic Hepatitis A Vaccines Aged Out No long er eligible based on patient's age to complete this topic IPV Vaccines Aged Out No longer eligi ble based on patient's age to complete this topic MMR Vaccines Aged Out No longer eligi ble based on patient's age to complete this topic Meningococcal ACWY Vaccine Aged Out N o longer eligible based on patient's age to complete this topic Meningococcal B Vacine Aged Out No lo nger eligible based on patient's age to complete this topic Pneumococcal Vaccine: Pediat rics (0 to 5 Years) and At-Risk Patients (6 to 64 Years) Aged Out No longer eligi ble based on patient's age to complete this topic RSV Immunization Patients Un momo 20 months Aged Out No longer eligible b ased on patient's age to complete this topic Varicella Vaccines Aged Out No longer eligible based on patient's age to complete this topic Care Teams Fabrication Specialist Relationship Specialty Start Date End Date Lorie Henderson MD PCP - General Internal Medicine 12/27/16
== END 2024-12-31 15:46 | disposition home or self-care (01) ==
PROVIDERS: PCP Internal Medicine; Visit Provider Physician Assistant
DX: B34.9 Viral infection, unspecified (principal)

== ENCOUNTER 2024-12-31 15:08 | Outpatient (REF) | payer OTHER, SELFPAY ==
[2025-01-01 12:26] LABS: Influenza A PCR NEGATIVE (Negative); Influenza B PCR NEGATIVE (Negative); Resp Syncy Virus RNA Qual PCR NEGATIVE (Negative); SARS COV2 PCR INHOUSE NEGATIVE (Negative)
--- OUTSIDE RECORDS SUMMARY | 2025-01-01 13:01 | XMS_ITS | Clinical Summary ---
Author Organization [facility] it Address [address] [place] [address] Care Team Providers Care Registered Medical Assistant Name Role Phone Lorie Henderson MD Primary [...] age to complete this topic Care Teams Registered Medical Assistant Relationship Specialty Start Date End Date Lorie Henderson MD PCP - General Internal Medicine 12/27/16
== END 2024-12-31 15:09 | disposition home or self-care (01) ==
LOC: HO.LNP 15:08
PROVIDERS: PCP Internal Medicine; Visit Provider Physician Assistant
DX: B34.9 Viral infection, unspecified (principal); R09.89 Other specified symptoms and signs involving the circulatory and respiratory systems; R50.9 Fever, unspecified
CPT/HCPCS: 0241U

== ENCOUNTER 2025-02-11 16:48 | Outpatient (AMB) | payer OTHER, SELFPAY ==
[2025-02-11 16:53] VITALS: BP 158/100; BMI 46.6
--- NOTE | 2025-02-11 16:53 | A.OFFPC_ITS ---
Vital Signs 02/11/25 16:53 Height 5 ft 3 in Weight 263 lb BMI 46.6 BP 158/100 H Blood Pressure Location Lt brachial Position Sitting Intake Visit Reasons: physical Intake Note: Patient here for a physical exam Community Development Technician Required: No Accompanied by: Self / Same As Patient Allergies Seasonal Allergies Allergy (Intermediate, Verified 02/11/25 17:01) sinus infections, asthma Medication List - Last Reconciled 02/11/25 by Daisy Espinoza MD albuterol sulfate 90 mcg/actuation 1 inh inhalation QID PRN cetirizine (Wal-Zyr (cetirizine)) 10 mg PO DAILY PRN levalbuterol tartrate 45 mcg/actuation (Xopenex HFA) 2 puffs inhalation Q4-6H PRN 30 days losartan 25 mg PO DAILY 90 days spironolactone 25 mg PO DAILY 90 days Tobacco use date assessed: 02/11/25 Dental Screening Dental Screen Date: 02/11/25 Did you have a dental visit in the last 12 months?: Yes Did you have a dental problem in the last 6 months where you did not have access to dental care?: No Was dental information given to patient?: Patient has dentist HPI HPI Comments History of Present Illness Details The patient is a 39-year-old female presenting for a physical exam and follow-up on symptoms related to hypertension, weight gain, and fatigue. She has a background of essential hypertension for which she uses losartan and spironolactone with some difficulties in blood pressure management, possibly influenced by diet. Recently, her weight has increased significantly, correlating with decreased physical activity due to an intensive job training period that limited her time for exercise and necessitated more fast-food consumption. She reports symptoms including fatigue, bloating, and hair changes, raising concerns for perimenopause, aggravated by her family history of early onset menopause. Her seasonal allergies are well-managed with medication as needed. The patient experiences mild depression and some work-related anxiety, especially due to her role as a [employer] worker amidst changing policies. Social habits include occasional alcohol use and no smoking. - Tdap vaccine received in 2016; due for renewal in 2026. - Normal Pap smear results; follow stand kacy screening intervals. - Seasonal allergies managed with inhale r and cetirizine. - Mirena in place for contraception. - Recommended continuation of regular echo-ups and follow-ups for blood pressure monitoring and evaluation of fatigue and weight gain. - Plan to check thyroid function and vit burgess levels to evaluate fatigue. [facility] Medical History (Updated 02/11/25 @ 17:20 by Daisy Espinoza MD) Fibroid IUD (intrauterine device) in place Essential hypertension PCOS (polycystic ovarian syndrome) Idiopathic hirsutism Migraines Moderate recurrent major depression Allergic rhinitis Mild persistent asthma Surgical History History of wisdom tooth extraction Family History Father No problems noted. Mother No problems noted. Brother No problems noted. Sister No problems noted. 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 1. Little interest or pleasure in doing things: several days 2. Feeling down, depressed, or hopeless: not at all 3. Trouble falling or staying asleep, or sleeping too much: several days 4. Feeling tired or having little energy: several days 5. Poor appetite or overeating: several days 6. Feeling bad about yourself - or that you are a failure or have let yourself or your family down: not at all 7. Trouble concentrating on things, such as reading the newspaper or watching television: not at all 8. Moving or speaking so slowly that other people could have noticed. Or the opposite - being so fidgety or restless that you have been moving around a lot more than usual: not at all 9. Thoughts that you would be better off or of hurting yourself in some way: not at all Total score: 4 Depression Screening Interpretation: Positive Depression Screening Follow-up: Existing condition, Community Mental Health Worker F/U and Follow-up Visit Requested Depression Screening Done: Yes 34036 - PHQ-9 Billing: Yes Source: Developed by Drs. Edilberto Song, Viv Rodriguez, Shad Trivedi and colleagues, with an educational jessica from [employer]. Thrive Questionnaire Date Thrive assessed: 02/04/25 I am a: Patient What is your living situation today?: I have a steady place to live Within the past 12 months, did the food you bought not last and you didn't have the money to get more?: I choose not to answer this question Within the past 12 months, did you worry whether your food would run out before you got money to buy more?: I choose not to answer this question Do you have trouble paying for medicines?: I choose not to answer this question Do you have trouble getting transportation to medical appointments?: No Do you have trouble paying your heating and electricity bill?: Yes Do you have trouble taking care of your child, family member or friend?: I choose not to answer this question Do you have trouble with day-to-day activities such as bathing, preparing meals, shopping, managing finances, etc.?: Yes Are you currently unemployed and looking for a job?: No Are you interested in more education?: No Please select the resources that you would like help with: None Currently or been in a relationship where the following occur: No concerns reported and I choose not to answer THRIVE Score: 1 AUDIT C Alcohol Use Questionnaire (AUDIT-C) 1. How often do you have a drink containing alcohol?: Monthly or less 2. How many drinks containing alcohol do you have on a typical day when you are drinking?: 1 or 2 3. How often do you have six or more drinks on one occasion?: Never Total Score: 1 Score Reviewed/Action Taken: No NATE-7 AMB Questionnaire NATE-7 Date NATE - 7 assessed: 02/11/25 Feeling nervous, anxious, or on edge: 2 = More than half the days Not being able to stop or control worryin = Not at all Worrying too much about different things: 1 = Several days Trouble relaxin = Several days Being so restless that it is hard to sit still: 1 = Several days Becoming easily annoyed or irritable: 2 = More than half the days Feeling afraid as if something awful might happen: 2 = More than half the days Total NATE-7 score (0-4 normal; 5-9 mild; 10-14 moderate; 15-21 severe): 9 Source: Developed by Drs. Edilberto Song, Viv Rodriguez, Shad Trivedi and colleagues, with an educational jessica from [employer]. NATE-7 Assessment Billing NATE-7 Assessment Tool: NATE-7 Assessment 03611 Review of Systems Const All systems reviewed & are unremarkable except as noted in HPI and below Card Denies chest pain at rest, Denies chest pain with activity, Denies edema, Denies irregular heart rhythm, Denies claudication, Denies dyspnea, Denies dyspnea on exertion, Denies orthopnea, Denies paroxysmal nocturnal dyspnea and Denies slow heart rate Resp Denies cough, Denies dyspnea and Denies dyspnea on exertion GI Denies abdominal pain, Denies change in bowel habits, Denies excessive flatus, Denies nausea and Denies vomiting Denies urinary incontinence, Denies urinary hesitancy and Denies urinary urgency Neuro Denies lack of coordination Physical exam (Primary Care) Vital Signs: Last Vital Signs BP 158/100 H 02/11/25 16:53 BMI result Body Mass Index 46.6 Tobacco/Smoking Status: Tobacco use Status Tobacco use date assessed 02/11/25 02/11/25 16:58 Patient Tobacco Use Status Never used Tobacco 02/11/25 16:58 e-Cigarette/Vaping Use Never Used 02/11/25 16:58 PHQ-9: PHQ-9 Score PHQ-9: Total score 4 02/11/25 16:58 Depression Screening Interpretation: Positive Depression Screening Follow-up: Existing condition, Community Mental Health Worker F/U and Follow-up Visit Requested Thrive Assessment: Date of Thrive Assessment Date Thrive assessed 02/04/25 02/11/25 16:58 Currently or been in a relationship where the following occur: No concerns reported and I choose not to answer [facility] Head: Yes normal to inspection, Yes normocephalic and Yes atraumatic Ears: external ears normal Eyes General: appearance normal, both eyes and all related structures Eyelids: Yes eyelids normal Conjunctivae: conjunctivae normal Neck Neck: Yes normal visual inspection and Yes supple Resp Effort & Inspection: normal respiratory effort Auscultation: clear to auscultation bilaterally Cardio Jugular venous distension: no JVD Rate: regular rate Rhythm: regular rhythm Heart sounds: S1 normal heart sound present and S2 normal heart sound present GI Inspection: Yes normal to inspection Palpation (GI): Soft to palpation and nontender Auscultation: normal bowel sounds Skin General skin exam: no rashes or lesions noted Neuro General: no focal motor deficits Extrem General: Yes full ROM Psych Appearance: grossly normal Coding Level of Care Code Est Pt Level 3 (14016) Est Pt Prev Care 18-39y(24066) Diagnoses Physical exam Z00.00 Chronic fatigue R53.82 Moderate recurrent major depression F33.1 Additional Codes PHQ-9 - 18699 - PHQ-9 Billing: Yes ([id number]) NATE-7 Assessment Billing - NATE-7 Assessment Tool: NATE-7 Assessment 16376 ([id number]) Time Spent (min) 33 Assessment & Plan Assessment & Plan (1) Physical exam: Code(s): Z00.00 - Encounter for general adult medical examination without abnormal find ings Category: Medical (2) Chronic fatigue: Code(s): R53.82 - Chronic fatigue, unspecified Category: Medical (3) Moderate recurrent major depression: Code(s): F33.1 - Major depressive disorder, recurrent, moderate Category: Medical Plan I will re-evaluate the patient's blood pressure in three weeks, considering medication adjustment if necessary, particularly losartan. Checking thyroid levels and vitamins through fasting blood work will help address fatigue and weight gain. Encouragement to resume exercise and improve diet quality is planned post-job training period. Monitoring perimenopausal symptoms and possible eczema is ongoing. The patient's mental health support will continue with counseling for anxiety related to employment stress. Mirena will remain in use for contraception. Follow up on the skin condition if further symptoms develop. Patient was informed and verbally consented to the use of an ambient scribe for clinic note documentation during this visit. I discussed the significance of controlling hypertension through diet and medication. Blood pressure will be rechecked in three weeks, and potential adjustment of losartan was considered. We addressed fatigue and weight gain by planning to evaluate thyroid function and check vitamin levels. The patient was advised on the importance of lifestyle modifications like increased physical activity and dietary changes, notably reducing fast-food intake. Monitoring for perimenopausal symptoms is essential due to family history. Eczema-related considerations were reviewed, and cetirizine was advised for allergy control. Mental health concerns were reviewed, and the importance of ongoing counseling was acknowledged. We agreed on continuing Mirena for contraception, and I advised on possible skin symptoms to monitor. Orders: Orders Lipid Panel Today E66.01 - Morbid (severe) obesity due to excess calories, E78.5 - Hyperlipidemia, unspecified Comprehensive Merrick. Panel Fast Today E66.01 - Morbid (severe) obesity due to excess calories Vitamin D 25-OH Total Today E55.9 - Vitamin D deficiency, unspecified Vitamin B12 and Folate Today E53.8 - Deficiency of other specified B group vitamins Thyroid Stimulating Hormone Today E66.01 - Morbid (severe) obesity due to excess calories Complete Blood Count Auto Diff Today E66.01 - Morbid (severe) obesity due to excess calories Patient Instructions: - Recheck blood pressure in three weeks. - Follow up with fasting blood work to check thyroid and vitamin levels. - Start a regular exercise routine after completing job training. - Limit fast-food consumption and improve diet quality. - Monitor any changes in fatigue and weight. - Continue using Mirena for contraception. - Follow up with counseling sessions as needed. - Report any new or worsening skin symptoms promptly.
--- OUTSIDE RECORDS SUMMARY | 2025-02-11 18:27 | XMS_ITS | Clinical Summary ---
Author Organization [facility] ity Address [address] [place] [address] Care Team Providers Care Meeting/Event Planner Name Role Phone Lorie Henderson MD Primary [...] Vaccine (2023-2 5 season) 2024 Influenza Vaccine (Season Ended) 2025 08/04/20 17 HIB Vaccines Aged Out No longer eligi [...] age to complete this topic Meningococcal B Vaccine Aged Out No l onger eligible based on patient's age to complete [...] age to complete this topic Care Teams Meeting/Event Planner Relationship Specialty Start Date End Date Lorie Henderson MD PCP - General Internal Medicine 12/27/16
== END 2025-02-11 17:14 | disposition home or self-care (01) ==
LOC: HO.HMCH 16:49
PROVIDERS: PCP Internal Medicine; Visit Provider Internal Medicine
DX: Z00.00 Encounter for general adult medical examination without abnormal findings (principal); R53.82 Chronic fatigue, unspecified; F33.1 Major depressive disorder, recurrent, moderate

== ENCOUNTER → 2025-02-11 16:48 | Outpatient (BNVA) | payer OTHER, SELFPAY | PROVIDERS: PCP Internal Medicine; Visit Provider Internal Medicine | DX: Z00.00 Encounter for general adult medical examination without abnormal findings (principal); R53.82 Chronic fatigue, unspecified; F33.1 Major depressive disorder, recurrent, moderate; I10 Essential (primary) hypertension; R63.5 Abnormal weight gain; Z68.42 Body mass index [BMI] 45.0-49.9, adult | CPT/HCPCS: 96127 ==

== ENCOUNTER 2025-03-08 13:16 | Outpatient (REF) | payer OTHER, SELFPAY ==
--- NOTE | ~2025-03-08 | US_ITS ---
CLINICAL HISTORY: Z97.5 - Presence of (intrauterine) contraceptive device --- Additional Notes or Spe cial Instructions: follow up in February Transabdominal and transvaginal pelvic ultrasound Comparison: 08/19/2024 Findings: Uterus 7.4 x 4.0 x 4.1 cm. Endometrium 6 mm. IUD in proper position. Three small uterine fibroids are noted. Largest measures 2.5 x 2.6 cm. No significant free fluid. Right ovary 3.8 x 2.4 x 2.0 cm. Left ovary 4.0 x 2.6 x 2.6 cm. Small left ovarian calcification noted. No significant ovarian abnormalities. Impression: Small uterine fibroids, otherwise unremarkable This document has been electronically signed by: Paul Montemayor MD on 03/08/2025 19:37:30
--- OUTSIDE RECORDS SUMMARY | 2025-03-08 13:35 | XMS_ITS | Encounter Summary ---
Author Organization [facility] Address [address] [place] [address] Care Team Providers Care Billing Associate Name Role Phone Lorie Henderson MD Primary Care Provider Unava ilable Encounter Details Date Type Department Care Team Description 07/25/2018 Release of Information Medical Records [address] [place] [id number] Abstract, Provider Social History Tobacco Use Types Packs/Day Years Used Date Smoking Tobacco: Never Smokeless Tobacco: Never Alcohol Use Standard Drinks/Week Comments Yes 0 (1 standard drink = 0.6 oz pur e alcohol) 0-2 drinks per month Sex Assigned at Date Recorded Female 09/18/2019 12:37 AM EST documented as of this encounter Plan of Treatment Not on file documented as of this encounter Visit Diagnoses Not on filedocumented in this encounter Care Teams Billing Associate Relationship Specialty Start Date End Date Lorie Henderson MD PCP - General Internal Medicine 12/05/17 documented as of this encounter
--- OUTSIDE RECORDS SUMMARY | 2025-03-08 13:35 | XMS_ITS | Encounter Summary ---
Author Organization [facility] Address [address] [place] [address] Care Team Providers Care Bowling Alley Mechanic Name Role Phone Lorie Henderson MD Primary Care Provider Unava ilable Shahzad Bowen Md Primary Care Provider Unav ailable Lorie Henderson MD Primary Care Provider Unava ilable Reason for Visit * Reason Onset Date Comments Medical Records 01/14/2017 Encounter Details Date Type Department Care Team Description 01/14/2017 Telephone OBGYN - [place] [address] [place] [id number] Sinena Richardson MD Medical Records Social History Tobacco Use Types Packs/Day Years Used Date Smoking Tobacco: Never Alcohol Use Standard Drinks/Week Comments Yes 0 (1 standard drink = 0.6 oz pur e alcohol) 0-2 drinks per month Sex Assigned at Date Recorded Female 09/18/2019 12:37 AM EST documented as of this encounter Miscellaneous Notes * Telephone Encounter - Antonette Mahan - 01/14/2017 3:08 PM EDT Pt signed CARLO today, faxed for records. documented in this encounter Plan of Treatment Not on file documented as of this encounter Visit Diagnoses Not on filedocumented in this encounter Care Teams Bowling Alley Mechanic Relationship Specialty Start Date End Date Lorie Henderson MD PCP - General Internal Medicine 12/27/16 08/28/17 Shahzad Bowen MD PCP - General Internal Medicine 08/29/17 12/04/17 Lorie Henderson MD PCP - General Internal Medicine 12/05/17 documented as of this encounter
--- OUTSIDE RECORDS SUMMARY | 2025-03-08 13:35 | XMS_ITS | Clinical Summary ---
Author Organization [facility] ity Address [address] [place] [address] Care Team Providers Care Enterprise Architect Name Role Phone Lorie Henderson MD Primary [...] age to complete this topic Care Teams Enterprise Architect Relationship Specialty Start Date End Date Lorie Henderson MD PCP - General Internal Medicine 12/27/16
--- OUTSIDE RECORDS SUMMARY | 2025-03-08 13:35 | XMS_ITS | Encounter Summary ---
Author Organization [facility] Address [address] [place] [address] Care Team Providers Care Grip Wrapper Name Role Phone Shahzad Bowen Md Primary Care Provider Chanelv ailLorie Bae MD Primary Care Provider Unava ilable Encounter Details Date Type Department Care Team Description 11/29/2017 Pt. Non Urgent Medic al Question OBGYN - [place] [address] [place] [address] Sienna Richardson MD Social History Tobacco Use Types Packs/Day Years Used Date Smoking Tobacco: Never Alcohol Use Standard Drinks/Week Comments Yes 0 (1 standard drink = 0.6 oz pur e alcohol) 0-2 drinks per month Sex Assigned at Date Recorded Female 09/18/2019 12:37 AM EST documented as of this encounter Progress Notes * Jo Tyler - 11/29/2017 9:58 AM ESTFrom: Maria Elena Carpenter To: Sienna Richardson MD Sent: 11/29/2017 9:57 AM EST Subject: medical concern last month my period was 2 wks behind. When I got it. It lasted 7 days and mostly heavy days. 2 wksafter my period ( 2 days ago) I had sudden burst of blood flowing our with clotting & no pain. It stopped after words but I'm worried something is wrong. id like to know if there is any availability. documented in this encounter Plan of Treatment Not on file documented as of this encounter Visit Diagnoses Not on filedocumented in this encounter Care Teams Grip Wrapper Relationship Specialty Start Date End Date Shahzad Bowen MD PCP - General Internal Medicine 08/29/17 12/04/17 Lorie Henderson MD PCP - General Internal Medicine 12/05/17 documented as of this encounter
--- OUTSIDE RECORDS SUMMARY | 2025-03-08 13:35 | XMS_ITS | Encounter Summary ---
Author Organization [facility] Address [address] [place] [address] Care Team Providers Care Mock Up Maker Name Role Phone Lorie Henderson MD Primary Care Provider Unava ilable Shahzad Bowen Md Primary Care Provider Unav ailable Lorie Henderson MD Primary Care Provider Unava ilable Encounter Details Date Type Department Care Team Description 06/14/2017 Transfer Records Medical Records [address] [place] [address] Abstract, Provider Social History Tobacco Use Types [...] on filedocumented in this encounter Care Teams Mock Up Maker Relationship Specialty Start Date End Date Lorie Henderson MD PCP - General Internal Medicine 12/27/16 08/28/17 Shahzad Bowen MD PCP - General Internal Medicine 08/29/17 12/04/17 Lorie Henderson MD PCP - General Internal Medicine 12/05/17 documented as of this encounter
--- OUTSIDE RECORDS SUMMARY | 2025-03-08 13:35 | XMS_ITS | Encounter Summary ---
Author Organization [facility] Address [address] [place] [address] Care Team Providers Care Grain Distributor Name Role Phone Lorie Henderson MD Primary Care Provider Unava ilShahzad Long Md Primary Care Provider Unav ailable Lorie Henderson MD Primary Care Provider Unava ilable Encounter Details Date Type Department Care Team Description 01/15/2017 Release of Information Medical Records [address] [place] [address] Abstract, Provider Social History Tobacco Use Types [...] on filedocumented in this encounter Care Teams Grain Distributor Relationship Specialty Start Date End Date Lorie Henderson MD PCP - General Internal Medicine 12/27/16 08/28/17 Shahzad Bowen MD PCP - General Internal Medicine 08/29/17 12/04/17 Lorie Henderson MD PCP - General Internal Medicine 12/05/17 documented as of this encounter
--- OUTSIDE RECORDS SUMMARY | 2025-03-08 13:35 | XMS_ITS | Encounter Summary ---
Author Organization [facility] Address [address] [place] [address] Care Team Providers Care Hip Hop Performers Name Role Phone Lorie Hendesron MD Primary Care Provider Unava ilable Shahzad Bowen Md Primary Care Provider Unav ailable Lorie Henderson MD Primary Care Provider Unava ilable Encounter Details Date Type Department Care Team Description 03/06/2017 [facility] [address] [place] [address] Md Gucci Social History Tobacco Use Types Packs/Day Years [...] on filedocumented in this encounter Care Teams Hip Hop Performers Relationship Specialty Start Date End Date Lorie Henderson MD PCP - General Internal Medicine 12/27/16 08/28/17 Shahzad Bowen MD PCP - General Internal Medicine 08/29/17 12/04/17 Lorie Henderson MD PCP - General Internal Medicine 12/05/17 documented as of this encounter
== END 2025-03-08 13:17 | disposition home or self-care (01) ==
LOC: HO.US 13:16
PROVIDERS: PCP Internal Medicine; Visit Provider Advanced Practice Midwife
DX: D21.9 Benign neoplasm of connective and other soft tissue, unspecified (principal); Z97.5 Presence of (intrauterine) contraceptive device
CPT/HCPCS: 76830; 76856

== ENCOUNTER → 2025-03-08 13:18 | Outpatient (BNV) | payer OTHER, SELFPAY | PROVIDERS: PCP Internal Medicine; Visit Provider Radiology Diagnostic Radiology | DX: D25.9 Leiomyoma of uterus, unspecified (principal) | CPT/HCPCS: 76830; 76856 ==

== ENCOUNTER 2025-04-10 10:18 | Outpatient (REF) | payer OTHER, SELFPAY ==
--- OUTSIDE RECORDS SUMMARY | 2025-04-10 10:20 | XMS_ITS | Clinical Summary ---
Author Organization [facility] ity Address [address] [place] [address] Care Team Providers Care Education Research Analyst Name Role Phone Lorie Henderson MD Primary [...] age to complete this topic Care Teams Education Research Analyst Relationship Specialty Start Date End Date Lorie Henderson MD PCP - General Internal Medicine 12/27/16
[2025-04-10 11:13] LABS: Basophils Percent Auto 0.6 % (0-2); Eosinophils Absolute Auto 0.2 X10*3/uL (0.0-0.4); Eosinophils Percent Auto 2.3 % (0-4); Hematocrit 40.9 % (37.0-47.0); Hemoglobin 13.8 g/dl (12.0-16.0); Imm Gran Abs Auto 0.02 X10*3/uL (0.00-0.03); Imm Gran Pct Auto 0.3 % (0.0-0.4); Lymphocytes Absolute Auto 2.6 X10*3/uL (1.2-4.9); MANUAL DIFF FLAG NO; Mean Corpuscular HGB Conc 33.7 g/dl (31.0-35.0); Mean Corpuscular Hemoglobin 29.9 pg (27.0-33.0); Mean Corpuscular Volume 88.5 fL (80.0-98.0); Mean Platelet Volume 8.7 fL (9.4-12.3); Monocytes Absolute Auto 0.7 X10*3/uL (0.1-1.2); Monocytes Percent Auto 9.8 % (2-11); Neutrophils Absolute Auto 3.7 x10*3/uL (2.0-8.3); Platelet Count 395 X10*3/uL (160-400); Red Blood Count 4.62 X10*6/uL (4.20-5.50); Red Cell Distribution Width 13.4 % (11.0-16.0); White Blood Count 7.3 X10*3/uL (4.8-10.8)
[2025-04-10 12:39] LABS: Alanine Aminotransferase 23 U/L (0-31); Albumin Level 4.5 g/dL (3.5-5.0); Alkaline Phosphatase 58 U/L (39-117); Anion Gap 14 (12-20); Aspartate Amino Transferase 23 U/L (5-31); Bilirubin Total 1.2 mg/dL (0.0-1.0); Blood Urea Nitrogen 12 mg/dL (9-16); Calcium 9.2 mg/dL (8.4-10.2); Carbon Dioxide 25 mmol/L (22-29); Chloride 106 mmol/L (96-108); Cholesterol 162 mg/dL (<200); Estimated Glomerular Filt Rate > 60; Glucose Fasting 123 mg/dL (60-99); HDL Cholesterol 48 mg/dL (>40); LDL Cholesterol Calculated 96 mg/dL (<100); Potassium 3.8 mmol/L (3.3-5.1); Sodium 141 mmol/L (135-145); Total Protein 7.2 g/dL (6.5-8.0); Triglycerides 92 mg/dL (<150)
[2025-04-10 12:53] LABS: Vitamin D 25-OH Total 96.7 ng/mL (>30)
[2025-04-10 13:08] LABS: Folate 13.9 ng/mL (> or = 4.0); Vitamin B12 340 pg/mL (200-900)
== END 2025-04-10 10:19 | disposition home or self-care (01) ==
LOC: HO.LAB 10:18
PROVIDERS: PCP Internal Medicine; Visit Provider Internal Medicine
DX: E66.01 Morbid (severe) obesity due to excess calories (principal); E55.9 Vitamin D deficiency, unspecified; E53.8 Deficiency of other specified B group vitamins; E78.5 Hyperlipidemia, unspecified
CPT/HCPCS: 36415; 80053; 80061; 82306; 82607; 82746; 84443; 85025

== ENCOUNTER 2025-04-17 12:59 | Outpatient (AMB) | payer OTHER, SELFPAY ==
--- NOTE | 2025-04-17 13:04 | MHC.OFFWIV ---
Intake Vital Signs 04/17/25 13:05 Height 5 ft 3 in Weight 265 lb BMI 46.9 BP 134/92 H Blood Pressure Location Lt brachial Position Sitting Respiration 16 Pulse 75 Pulse Source Pulse Oximeter Temp 98.6 F Temp Source Oral Pulse Oximetry (%) 96 Oxygen Delivery Method Room Air Intake Visit Reasons: EP-Rt knee pain, can not bended Intake Note: Pt is here today c/o Rt knee pain hard time bending: No trauma noted Patient Tobacco Use Status: Never used Tobacco Allergies Seasonal Allergies Allergy (Intermediate, Verified 04/17/25 13:05) sinus infections, asthma HPI HPI Comments History of Present Illness Details Maria Elena presents with acute knee pain that started yesterday, with a history of slight pain for a few weeks prior. The patient reports a significant worsening of symptoms on Saturday while doing a household project that involved kneeling. Upon standing, the pain intensified considerably, making it difficult to walk down stairs to attend a birthday constitution party. The pain is located in the center of the knee and radiates downward. Yesterday, the patient experienced difficulty lifting the leg without pain. Aggravating factors include weight-bearing activities, particularly climbing the four flights of stairs to their apartment. The patient has gained weight recently, increasing from 245 lbs at the start of the year to 264 lbs currently. They deny any specific injury such as a trip, fall, or twist. The patient reports waking up with a crack in the affected leg every morning. To manage the pain, the patient took Motrin yesterday and attempted to use a knee brace purchased from [employer], which didn't fit well due to swelling. They describe feeling a light pulsating sensation in the knee, which was exacerbated by hot weather. The pain has significantly impacted their daily functioning, causing concern about their ability to carry items and potentially reinjuring themselves. The patient needs to go to the office twice a week and is requesting a work note for Saturday and . The patient denies any current fever or chills but reports experiencing these symptoms a few weeks ago. They also mention recent mosquito bites from last weekend. There is no history of gout, tick bites, and they deny any pain in the calf. Review of Systems General: Positive for weight gain. Negative for current fever, chills. Skin: Positive for mosquito bites. Musculoskeletal: Positive for knee pain, difficulty walking, and morning joint cracking. [facility] Medical History (Updated 03/25/25 @ 16:22 by Nicolette Rai CNM) Fibroid IUD (intrauterine device) in place Essential hypertension PCOS (polycystic ovarian syndrome) Idiopathic hirsutism Migraines Moderate recurrent major depression Allergic rhinitis Mild persistent asthma Surgical History History of wisdom tooth extraction Family History Father No problems noted. Mother No problems noted. Brother No problems noted. Sister No problems noted. 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 Current occupational exposures/hazards: No Gender identity: Female Cognitive needs: No Hearing needs: No Vision needs: No Female Reproductive History Menstrual Age of Menarche: 13 Physical Exam Vital Signs: Last Vital Signs Temp 98.6 F 04/17/25 13:05 Pulse 75 04/17/25 13:05 Resp 16 04/17/25 13:05 BP 134/92 H 04/17/25 13:05 Pulse Ox 96 04/17/25 13:05 Oxygen Delivery Method Room Air 04/17/25 13:05 BMI result Body Mass Index 46.9 Const General: cooperative, healthy appearing, no acute distress and alert Orientation/consciousness: patient oriented x3 Limitations: no limitations HEENT Head: Yes normal to inspection Ears: hearing grossly normal bilaterally General nose exam: Normal external nose present Resp Effort & Inspection: normal respiratory effort and able to speak in complete sentences Cardio Rate: regular rate Skin General skin exam: no rashes or lesions noted Neuro General: patient oriented x3 Extrem General: Yes normal to inspection Right lower extremity: normal to inspection and knee Details: normal to inspection and tenderness; no swelling and Piedad's Test not performed Left lower extremity: normal to inspection Assessment & Plan Assessment & Plan (1) Right knee pain: Code(s): M25.561 - Pain in right knee Qualifiers: Chronicity: acute Qualified Code(s): M25.561 - Pain in right knee Plan: Acute Knee Pain: - Patient reports acute onset of knee pain yesterday, with a history of slight pain for a few weeks prior - Pain significantly worsened after kneeling during a household project on Saturday - No specific injury such as a trip, fall, or twist reported - Patient describes difficulty walking down stairs and inability to lift the leg without pain - Recent weight gain noted (264 lbs from 245 lbs at the start of the year) - Differential diagnoses include wear and tear on the knee, possibly an inflamed bursa causing pain and swelling, or stress fractures on the tibial plateau, low suspicion for septic joint given absence of systemic signs, no warmth or erythema - No suspected ligament injury based on the history provided - cxr was considered but in abscence of trauma, inciting injury or swelling will hold for now Plan: - Take Motrin 600-800 mg PO q8h regularly for at least 5 days, unless stomach issues occur - Add Tylenol as needed for additional pain relief - Bear weight as tolerated - Return sooner if pain worsens, or if redness, warmth, or increased swelling develops - Continue current treatment if improvement noted - Consider more advanced imaging (e.g., MRI) if needed in the future - Provide work note for Saturday and Coding Level of Care Code Est Pt Level 3 (82230) Diagnoses Acute pain of right knee M25.561 Chronicity: acute
[2025-04-17 13:05] VITALS: BP 134/92; PULSE 75; RESP 16; TEMP 37; O2SAT 96; BMI 46.9
== END 2025-04-17 13:39 | disposition home or self-care (01) ==
LOC: HO.HMCWIC 12:59
PROVIDERS: PCP Internal Medicine; Visit Provider Physician Assistant
DX: M25.561 Pain in right knee (principal)

== ENCOUNTER → 2025-04-17 12:59 | Outpatient (BNVA) | payer OTHER, SELFPAY | PROVIDERS: PCP Internal Medicine; Visit Provider Physician Assistant ==

== ENCOUNTER 2025-09-06 08:17 | Outpatient (AMB) | payer OTHER, SELFPAY ==
--- NOTE | 2025-09-06 08:19 | A.OFFPC_ITS ---
Vital Signs 09/06/25 08:20 Height 5 ft 3 in Weight 261 lb 2 oz BMI 46.3 BP 140/90 H Blood Pressure Location Lt brachial Position Sitting Pulse 68 Pulse Source Pulse Oximeter Temp 97.3 F Temp Source Temporal Artery Scan Pulse Oximetry (%) 99 Oxygen Delivery Method Room Air Intake Visit Reasons: follow up BP Intake Note: Patient is here to follow up on BP. Brim Pouncer Required: No Forestry Aid Technician: Not Required per policy Accompanied by: Self / Same As Patient Allergies Seasonal Allergies Allergy (Intermediate, Verified 09/06/25 08:27) sinus infections, asthma Medication List - Last Reconciled 09/06/25 by Daisy Espinoza MD albuterol sulfate 90 mcg/actuation 1 inh inhalation QID PRN cetirizine (Wal-Zyr (cetirizine)) 10 mg PO DAILY PRN levalbuterol tartrate 45 mcg/actuation (Xopenex HFA) 2 puffs inhalation Q4-6H PRN 30 days losartan 25 mg PO DAILY 90 days spironolactone 25 mg PO DAILY 90 days valacyclovir (Valtrex) 500 mg PO BID 3 days Tobacco use date assessed: 09/06/25 Dental Screening Dental Screen Date: 02/11/25 HPI HPI Comments History of Present Illness Details The patient is a 40-year-old female presenting for follow-up and management of chronic conditions. The patient has a history of morbid obesity with a BMI of 46.3 and has been advised on diet and exercise. A prior attempt to start Tirzepatide was unsuccessful due to insurance non-approval. Her history includes hypertension, for which she takes losartan 25 mg and spironolactone 25 mg. Her blood pressure was noted to be borderline elevated during today's visit. She has a history of impaired glucose tolerance, with elevated blood sugar on prior lab work. She denies any associated symptoms such as polyuria, polydipsia, or unintentional weight loss. The patient recently developed an allergic reaction, including hives and tongue swelling, after consuming shrimp and lobster. She has a known history of seasonal allergic rhinitis, managed with cetirizine as needed, and mild persistent asthma, for which she uses a rescue inhaler less than once a month. Other medical history includes depression, which she reports is much better and has been helped by social support, and genital herpes, for which she takes Valtrex as needed. She uses a Mirena IUD for contraception. [facility] Medical History (Updated 09/06/25 @ 08:41 by Daisy Espinoza MD) Fibroid IUD (intrauterine device) in place Essential hypertension PCOS (polycystic ovarian syndrome) Idiopathic hirsutism Migraines Moderate recurrent major depression Allergic rhinitis Mild persistent asthma Surgical History History of wisdom tooth extraction Family History Father No problems noted. Mother No problems noted. Brother No problems noted. Sister No problems noted. 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[employer] Current occupational exposures/hazards: No Gender identity: Female Cognitive needs: No Hearing needs: No Vision needs: No Female Reproductive History Menstrual Age of Menarche: 13 Questionnaire Thrive Questionnaire Date Thrive assessed: 02/04/25 I am a: Patient What is your living situation today?: I have a steady place to live Within the past 12 months, did the food you bought not last and you didn't have the money to get more?: I choose not to answer this question Within the past 12 months, did you worry whether your food would run out before you got money to buy more?: I choose not to answer this question Do you have trouble paying for medicines?: I choose not to answer this question Do you have trouble getting transportation to medical appointments?: No Do you have trouble paying your heating and electricity bill?: Yes Do you have trouble taking care of your child, family member or friend?: I choose not to answer this question Do you have trouble with day-to-day activities such as bathing, preparing meals, shopping, managing finances, etc.?: Yes Are you currently unemployed and looking for a job?: No Are you interested in more education?: No Please select the resources that you would like help with: None THRIVE Score: 1 NATE-7 AMB Questionnaire NATE-7 Date NATE - 7 assessed: 02/11/25 Source: Developed by Drs. Edilberto Song, Viv Rodriguez, Shad Trivedi and colleagues, with an educational jessica from [employer]. Review of Systems Const All systems reviewed & are unremarkable except as noted in HPI and below Card Denies chest pain at rest, Denies chest pain with activity, Denies edema, Denies irregular heart rhythm, Denies claudication, Denies dyspnea, Denies dyspnea on exertion, Denies orthopnea, Denies paroxysmal nocturnal dyspnea and Denies slow heart rate Resp Denies cough, Denies dyspnea and Denies dyspnea on exertion GI Denies abdominal pain, Denies change in bowel habits, Denies excessive flatus, Denies nausea and Denies vomiting Physical exam (Primary Care) Vital Signs: Last Vital Signs Temp 97.3 F 09/06/25 08:20 Pulse 68 09/06/25 08:20 BP 140/90 H 09/06/25 08:20 Pulse Ox 99 09/06/25 08:20 Oxygen Delivery Method Room Air 09/06/25 08:20 BMI result Body Mass Index 46.3 BMI Assessment/Plan discussion: High BMI High, discussed plan: lifestyle, weight reduction, dietary and physical activity Tobacco/Smoking Status: Tobacco use Status Tobacco use date assessed 09/06/25 09/06/25 08:25 Patient Tobacco Use Status Never used Tobacco 09/06/25 08:25 e-Cigarette/Vaping Use Never Used 09/06/25 08:25 Thrive Assessment: Date of Thrive Assessment Date Thrive assessed 02/04/25 09/06/25 08:25 Resp Effort & Inspection: normal respiratory effort Auscultation: clear to auscultation bilaterally Cardio Jugular venous distension: no JVD Rate: regular rate Rhythm: regular rhythm Heart sounds: S1 normal heart sound present and S2 normal heart sound present Extrem General: Yes full ROM Coding Level of Care Code Est Pt Level 4 (58713) Complex EM visit Add On G2211 Diagnoses Essential hypertension I10 Obesity, morbid, BMI 40.0-49.9 E66.01 Impaired glucose tolerance R73.02 Moderate recurrent major depression F33.1 Allergic rhinitis J30.9 Time Spent (min) 22 Assessment & Plan Assessment & Plan (1) Essential hypertension: Code(s): I10 - Essential (primary) hypertension Category: Medical (2) Obesity, morbid, BMI 40.0-49.9: Code(s): E66.01 - Morbid (severe) obesity due to excess calories Category: Medical (3) Impaired glucose tolerance: Code(s): R73.02 - Impaired glucose tolerance (oral) Category: Medical (4) Moderate recurrent major depression: Code(s): F33.1 - Major depressive disorder, recurrent, moderate Category: Medical (5) Allergic rhinitis: Code(s): J30.9 - Allergic rhinitis, unspecified Category: Medical Plan Plan 1. Hypertension The patient's blood pressure was borderline elevated today despite being on losartan 25 mg and spironolactone 25 mg. Will arrange for a follow-up blood pressure check in three weeks. 2. Impaired Glucose Tolerance The patient has a history of elevated blood sugar and hyperglucose tolerance, but denies symptoms of hyperglycemia. A fasting blood glucose test has been ordered to recheck her levels, requiring at least an eight-hour fast. 3. Shellfish Allergy The patient reports new-onset hives and tongue swelling after consuming shrimp and lobster. Blood work for a food allergy panel will be ordered to confirm. 4. Morbid Obesity The patient has a BMI of 46.3. Previous consideration for Tirzepatide was not pursued as insurance did not approve it. The patient was advised to continue diet and exercise modification. 5. Mild Persistent Asthma The patient's asthma is well-controlled, with use of her rescue inhaler less than once a month. She will continue to use her inhaler as needed. 6. Allergic Rhinitis, Seasonal The patient's seasonal allergic rhinitis is well-controlled. She will continue to use cetirizine as needed for symptoms. 7. Depression The patient reports her depression s?ntomas are much better, which she attributes to new social support. Will continue to monitor. Orders: Orders Comprehensive [place]. Panel Fast Today R73.02 - Impaired glucose tolerance (oral) Celiac Disease Panel Today D64.9 - Anemia, unspecified Rast Allergen Today L50.9 - Urticaria, unspecified
[2025-09-06 08:20] VITALS: BP 140/90; PULSE 68; TEMP 36.3; O2SAT 99; BMI 46.3
--- OUTSIDE RECORDS SUMMARY | 2025-09-06 08:40 | XMS_ITS | Clinical Summary ---
Author Organization [facility] ity Address [address] [place] [address] Care Team Providers Care Air Brake Rigger Name Role Phone Lorie Henderson MD Primary [...] Cervical Cancer Screening: P ap Smear 2008 HPV Vaccines (1 - 3-dose SCD M series) 2014 Depression Screening 10/28/2024 COVID-19 Vaccine ( - 2023-2 5 season) 2025 Influenza Vaccine (#1) 2025 08/04/2017 RSV Immunization Adult Patie nts (1 - 1-dose 75+ series) 2062 HIB Vaccines Aged Out No longer eligi [...] 5 Years) and At-Risk Patients (6 to 49 Years) Aged Out No longer eligi ble based on patient's age to complete this topic RSV Immunization Patients Un momo 20 months Aged Out No longer eligible b ased on patient's age to complete this topic Varicella Vaccines Aged Out No longer eligible based on patient's age to complete this topic Care Teams Air Brake Rigger Relationship Specialty Start Date End Date Lorie Henderson MD PCP - General Internal Medicine 12/27/16
== END 2025-09-06 08:45 | disposition home or self-care (01) ==
PROVIDERS: PCP Internal Medicine; Visit Provider Internal Medicine
DX: I10 Essential (primary) hypertension (principal); E66.01 Morbid (severe) obesity due to excess calories; F33.1 Major depressive disorder, recurrent, moderate; Z68.42 Body mass index [BMI] 45.0-49.9, adult; R73.02 Impaired glucose tolerance (oral); J30.9 Allergic rhinitis, unspecified